=== PATIENT | male | born 1965 | race Caucasian/White ===

== ENCOUNTER 2019-08-13 19:14 | Inpatient (IN) | payer MEDICAID ==
[~2019-08-13] VITALS: Ht 185.4 cm; Wt 61.2 kg
--- NOTE | ~2019-08-13 | HEMODYNAMI ---
PATIENT:PALLAVI DON MEDICAL RECORD: [id number] : 69 LOCATION:[facility] ADMISSION DATE: 08/13/19 Generatedon:08/15/201910:05 Patient name: PALLAVI DON Patient #: [id number] SSN: : 1965 Date of study: 08/15/2019 Page: Of Hemodynamic Procedure Report Patient Data Patient Demographics Procedure consent was obtained First Name: PALLAVI Gender: Male Last Name: ARIAN : 1965 Patient #: [id number] Age: 54 year(s) Race: Unknown Additional ID: [id number] Contact details [address]: [address] [place] [address] State: [place] City: [place] Zip code: [address] Past Medical History Allergies: No known allergies Admission Admission Data Admission Date: 08/13/2019 Admission Time: 20:59 Room #: 2203 Height (in.): 71 BSA: 1.78 (m2) Height (cm.): 180.34 BMI: 18.83 (kg/m2) Weight (lbs.): 135 Weight (kg.): 61.23 Procedure Procedure Types Cath Procedure Peripheral Cath Diagnostic Procedure Developmental Psychologist Peripheral Procedures Abd/Extremity Extremities Bilat Lower Extremity Procedure Description Procedure Date Procedure Date: 08/15/2019 Procedure Start Time: 9:19 Procedure Staff Name Function Ronnie Odonnell MD Performing Physician Virginia Diop RT Patient Coordinator Front Desk Cindy Thompson RN Nurse RICO ALONSO RT Scrub Procedure Data Cath Procedure Fluoroscopy Diagnostic fluoroscopy Total fluoroscopy Time: 6.6 time: 6.6 min min Contrast Material Contrast Material Type Amount (ml) Isovue 300 120 Diagnostic catheters Device Type Used For End Catheter Placement Merit ULTRA BOLUS FLUSH 5Fr 65CM catheter ([id number]) Procedure Medications Medication Administration Route Dosage Heparin Flush Bag added to field 3 bags (1000units/500ml NS) Lidocaine 1% added to field 20 Versed I.V. 1 mg Fentanyl I.V. 50 mcg Versed I.V. 1 mg Fentanyl I.V. 50 mcg Benadryl I.V. 50 mg Versed I.V. 1 mg Fentanyl I.V. 50 mcg Heparin Bolus I.V. 2000 units Versed I.V. 1 mg Fentanyl I.V. 50 mcg Hemodynamics Rest BSA: 1.78 (m2) O2 Consumption: Estimated: 230.07 (ml/min) O2 Consumption indexed : Estimated:129.25 (ml/min/m) Heart Rate: 97 (bpm) Snapshots Pre Cath Intra NCS Post Cath Vital Signs Time Heart Resp SPO2 etCO2 NIBP (mmHg) Rhythm Pain Sedation Rate (ipm) (%) (mmHg) Status Level (bpm) 9:01:29 96 16 100 36 158/112(146) NSR 0 (11) 10(A) , No pain 9:05:43 96 15 100 24 154/111(135) NSR 0 (11) 10(A) , No pain 9:09:57 96 16 100 35.3 152/111(139) NSR 0 (11) 10(A) , No pain 9:14:09 93 15 100 31.5 156/108(137) NSR 0 (11) 10(A) , No pain 9:16:28 94 15 100 36 149/112(134) NSR 0 (11) 8(A) , No pain 9:20:38 98 13 100 33 154/113(134) NSR 0 (11) 8(A) , No pain 9:24:50 105 16 100 31.5 155/116(137) NSR 0 (11) 8(A) , No pain 9:29:02 102 16 100 29.2 157/119(140) NSR 0 (11) 8(A) , No pain 9:30:53 100 14 100 33.8 156/112(136) NSR 0 (11) 8(A) , No pain 9:35:04 96 14 100 34.5 143/106(126) NSR 0 (11) 8(A) , No pain 9:39:12 95 14 100 27 140/106(118) NSR 0 (11) 8(A) , No pain 9:43:20 96 15 100 31.5 152/107(131) NSR 0 (11) 8(A) , No pain 9:47:32 98 16 100 24.7 151/111(132) NSR 0 (11) 8(A) , No pain 9:51:42 92 16 100 32.3 151/100(135) NSR 0 (11) 8(A) , No pain 9:55:52 96 16 100 33.8 151/107(131) NSR 0 (11) 8(A) , No pain 10:00:02 93 13 100 33.8 153/110(136) NSR 0 (11) 8(A) , No pain 10:03:51 91 15 100 33.8 153/110(134) NSR 0 (11) 8(A) , No pain Medications Time Medication Route Dose Verified Delivered Reason Notes Effec tiveness by by 9:14:51 Heparin Flush added 3 Ronnie Trujillo used for Bag to bags Odonnell Odonnell procedure (1000units/500ml field MD JOHNSON NS) 9:15:02 Lidocaine 1% added 20ml Ronnie Trujillo for local to vial Odonnell Odonnell anesthetic field MD JOHNSON 9:15:14 Versed I.V. 1 mg Ronnie White for Odonnell Jay RN sedation 9:15:28 Fentanyl I.V. 50 Ronnie Singhody for mcg Odonnell Jay RN sedation 9:19:03 Versed I.V. 1 mg Ronnie Singhody for Odonnell Jay RN sedation 9:19:12 Fentanyl I.V. 50 Ronnie Cindy for mcg Odonnell Ajy RN sedation 9:29:34 Benadryl I.V. 50 mg Ronnie Singhody Per Odonnell Jay RN physician 9:29:43 Versed I.V. 1 mg Ronnie Singhody for Odonnell Jay RN sedation 9:29:53 Fentanyl I.V. 50 Ronnie Cindy for mcg Odonnell Jay RN sedation 9:33:25 Heparin Bolus I.V. 2000 Ronnie Trujillo used for units Odonnell Odonnell procedure MD JOHNSON 9:44:47 Versed I.V. 1 mg Ronnie Singhody for Odonnell Jay RN sedation 9:44:56 Fentanyl I.V. 50 Ronnie Cindy for mcg Odonnell Jay RN sedation Procedure Log Time Note 8:39:44 Patient Height : 71 inches 8:39:48 Patient Weight : 135 lbs 8:40:29 Use device set IR Diagnostic 8:40:31 Tegaderm 4 x 4 ([id number]) opened to sterile field. 8:40:32 Sterile Angiographic Pack opened to sterile field. 8:40:34 Bag Decanter (2002S) opened to sterile field. 8:40:55 PERCUTANEOUS ENTRY 19GA needle opened to sterile field. 8:41:06 DOC .035 wire ([id number]) opened to sterile field. 8:56:29 Time tracking: Regular hours (M-F 7:00 - 5:00) 8:56:36 Plan of Care:Hemodynamics will remain stable., Cardiac rhythm will remain stable., Comfort level will be maintained., Respiratory function will remain adequate., Patient/ family verbilizes understanding of procedure., Procedure tolerated without complication., Recovers from procedure without complications.. 8:56:44 Patient received from Med/Surg to IR Alert and oriented. Tansferred to table in Supine position. 8:56:47 Signed procedure consent form obtained from patient. 8:56:53 H&P Date Dictated: 08/15/2019 Within 30 days and on chart.. 8:56:58 Pre-procedure instructions explained to patient. 8:56:59 Pre-op teaching completed and patient verbalized understanding. 8:57:01 Family unavailable. 8:57:03 Patient NPO since Midnight. 8:57:13 Patient allergic to No known allergies 8:57:57 Is the patient allergic to Iodine/contrast media? No. 8:58:04 Is patient on blood thinner?No 8:58:07 Patient diabetic? No. 8:58:18 - 8:58:20 ----Pre-sedation anethsthesia assessment.---- 8:58:24 Previous problem with sedation/anesthesia? No ? 8:58:28 Snore? No 8:58:31 Sleep apnea? No 8:58:42 Deviated septum? No 8:58:52 Opens mouth fully? Yes 8:58:55 Sticks out tongue? Yes 8:58:58 Airway obstruction? No ? 8:59:04 Dentures? No ? 8:59:09 Pre procedure: right dorsailis pedis pulse Doppler 8:59:13 Pre procedure: left dorsailis pedis pulse Doppler 8:59:24 Pre procedure: right posterior tibial pulse Doppler 8:59:29 Pre procedure: left posterior tibial pulse Doppler 8:59:38 Right groin area was prepped with chlora-prep and draped in sterile fashion 8:59:40 - 8:59:49 Fire Safety Assessment: A--An alcohol-based skin anteseptic being used preoperatively., C--Open oxygen or nitrous oxide is being used. 8:59:56 1) 90+ Normal kidney functon but urine findings or structural abnormalities or genetic trait point to kidney disease. 9:00:13 - 9:00:22 ECG and BP/O2 sat monitors applied to patient. 9:00:24 Vital chart was started 9:00:25 Baseline sample Acquired. 9:00:27 Full Disclosure recording started 9:01:05 Baseline sample Acquired. 9:01:16 - 9:14:51 Heparin Flush Bag (1000units/500ml NS) 3 bags added to field was administered by Ronnie Odonnell MD; used for procedure; Verbal order read back and verified. 9:15:02 Lidocaine 1% 20ml vial added to field was administered by Ronnie Odonnell MD; for local anesthetic; Verbal order read back and verified. 9:15:14 Versed 1 mg I.V. was administered by Cindy Thompson RN; for sedation; Verbal order read back and verified. 9:15:28 Fentanyl 50 mcg I.V. was administered by Cindy Thompson RN; for sedation ; Verbal order read back and verified. 9:17:54 SHEATH 6FR [place] (VWG506) opened to sterile field. 9:17:58 A Vital Vio ULTRA BOLUS FLUSH 5Fr 65CM catheter ([id number]) was advanced over the wire and used for . 9:18:07 Physician arrived 9:18:08 --------ALL STOP TIME OUT------ 9:18:08 Final Timeout: patient, procedure, and site verified with staff and physician. All members of the team are in agreement. 9:19:03 Versed 1 mg I.V. was administered by Cindy Thompson RN; for sedation; Verbal order read back and verified. 9:19:05 Procedure started. 9:19:09 Local anesthetic to right femoral artery with Lidocaine 1% by Ronnie Odonnell MD.INITIAL ACCESS ONLY 9:19:12 Fentanyl 50 mcg I.V. was administered by Cindy Thompson RN; for sedation ; Verbal order read back and verified. 9:27:39 GLIDE WIRE ANGLE 180cm (RX7966) opened to sterile field. 9:27:40 VANCE 260 wire ([id number]) opened to sterile field. 9:27:59 TORQUE DEVICE PLASTIC .038 ( TD01) opened to sterile field. 9:29:34 Benadryl 50 mg I.V. was administered by Cindy Thompson RN; Per physician ; Verbal order read back and verified. 9:29:43 Versed 1 mg I.V. was administered by Cindy Thompson RN; for sedation; Verbal order read back and verified. 9:29:53 Fentanyl 50 mcg I.V. was administered by Cindy Thompson RN; for sedation ; Verbal order read back and verified. 9:33:25 Heparin Bolus 2000 units I.V. was administered by Ronnie Odonnell MD; used for procedure; Verbal order read back and verified. 9:34:51 INFLATOR BasixTOUCH (ER0360) opened to sterile field. 9:35:05 SPIDER EMBOLIC PROTECTION DEVICE 6MM ([id number]) opened to sterile field. 9:35:21 CHOICE PT Extra Support J 300cm guide wire ([id number]) opened to steril e field. 9:35:49 Inflate balloon Inflation number: 1 A [place] 7 x 4 x 135 Balloon ([id number]) was prepped and advanced across the Undefined1 , then inflated . 9:44:47 Versed 1 mg I.V. was administered by Cindy Thompson RN; for sedation; Verbal order read back and verified. 9:44:56 Fentanyl 50 mcg I.V. was administered by Cindy Thompson RN; for sedation ; Verbal order read back and verified. 9:47:40 GLIDE CATHETER 4FR Straight 100cm (CG413) opened to sterile field. 9:51:47 ANGIOSEAL-VIP PLUS 6 FR opened to sterile field. 9:54:21 Procedure ended.(Physican Out) 9:55:02 Fluoroscopy time 06.60 minutes. 9:55:09 Contrast amount:Isovue 300 120ml. 9:56:56 Procedure and supply charges have been captured, reviewed, submitted an d are correct. 10:04:40 Report given to Med/Surg. 10:05:14 Vital chart was stopped Intervention Summary Intervention Notes Time ActionType Lesion and Equipment Used Action# Pressure Duration Attributes 9:35:49 Inflate Undefined1 Evercross 7 x 4 1 0 00:00 balloon x 135 Balloon ([id number]) Device Usage Item Name Manufacture Quantity Catalog Number Hospital Part Current Minimal Lot# / Charge Number Stock Stock Serial# Code Tegaderm 4 x 4 3M 1 [id number] 5 (1626W) Sterile Cardinal 1 [id number] 414567 739981 5 Angiographic Health Pack Bag Decanter Microtek 1 338296 87181 855330 5 () Medical Inc. PERCUTANEOUS Cook Medical 1 [id number] 964900 131262 5 [id number] ENTRY 19GA needle DOC .035 wire Cook Medical 1 [id number] 011448 553551 5 ([id number]) SHEATH 6FR Terumo 1 BRQ474 140634 950583 701050 40 [place] (UYE956) Merit ULTRA Merit 1 [id number] 075948 490926 5 BOLUS FLUSH 5Fr Medical 65CM catheter ([id number]) GLIDE WIRE Terumo 1 [id number] 153815 762430 120954 5 ANGLE 180cm (LX4565) VANCE 260 wire Cook Medical 1 [id number] 807311 55302 375351 5 [id number] ([id number]) TORQUE DEVICE [place] 1 TD01 190863 465484 888933 5 PLASTIC .038 ( Scientific TD01) INFLATOR Merit 1 [id number] 026553 468587 452442 5 BasixQuyi Network Medical (ID2934) SPIDER EMBOLIC Medtronic 1 [id number] 663979 720765 5 PROTECTION DEVICE 6MM ([id number]) CHOICE PT Extra [place] 1 [id number] 393508 009306 307714 5 Support J 300cm Scientific guide wire ([id number]) Evercross 7 x 4 Medtronic 1 [id number] 338651 596118 911020 5 x 135 Balloon ([id number]) GLIDE CATHETER Terumo 1 CG413 134496 860150 5 4FR Straight 100cm (CG413) ANGIOSEAL-VIP [place] 1 [id number] 931487 210798 620858 5 PLUS 6 FR Signature Audit [place] Stage Time Signature Unsigned Intra-Procedure 08/15/2019 Virginia Diop 10:05:09 AM RT(R) [facility] [address] [place] [address]
--- NOTE | ~2019-08-13 | EC ---
PATIENT:PALLAVI DON DATE OF SERVICE: 08/13/19 SEX: M MEDICAL RECORD: [id number] DATE OF : [birth year] LOCATION:[facility] AGE OF PATIENT: 54 ADMISSION DATE: 08/13/19 REFERRING PHYSICIAN: INTERPRETING PHYSICIAN: LISA JONES MD ECHOCARDIOGRAM REPORT ECHO CHARGES 4 ECHO COMPLETE Date: 08/15/19 CLINICAL DIAGNOSIS: FOOT AND ABDOMINAL ABCESSESS, ASSESS FOR VEGATATIONS... ECHOCARDIOGRAPHIC MEASUREMENTS (adult normal given) AC root (d.<3.7cm) 4.3 cm LV Septum d (<1.2 cm> 1.2 cm Valve Excursion 1.0 cm LV Septum (systole) 1.5 cm Left Atria (s.<4.0cm> 5.4 cm LVPW d(<1.2cm) 1.4 cm RV (d.<2.3cm) 3.5 cm LVPW (sytole) 1.8 cm LV diastole(<5.6CM) 5.9 cm MV E-F(>70mm/sec) cm LV systole 4.8 cm LVOT Diameter 2.3 cm MV exc.(>10mm) 1.6 cm Est.ejection fraction (50-75%) % DOPPLER: LVIT cm/sec A 91.0 cm/sec E 55.0 cm/sec LA cm/sec RVSP 18 mmHg LVOT 79 cm/sec AOP1/2T m/s Asc. Ao 107 cm/sec RVOT 68 cm/sec RA cm/sec PA 103 cm/sec AV Gradient Peak 4.56 mmHg AV Mean 2.78 mmHg AV Area 3.6 cm MV Gradient Peak 5.28 mmHg MV Mean 2.10 mmHg MV Area cm COMMENTS: Apparel Merchandiser: 2 GABBI TIAN Hot Die Picker: 1 Dr. Jones TAPE# PACS Pericardial Effusion N DATE OF SERVICE: ECHOCARDIOGRAM FINDINGS: 1. Left ventricular chamber size is mildly dilated. 2. Left ventricular systolic function is preserved at 55%. 3. Left atrium is mildly dilated. Right atrium and right ventricle chamber sizes are within normal limits. 4. Valvular structures have normal structure and motion. No evidence of ECHOCARDIOGRAM REPORT [id number] PALLAVI DON vegetative endocarditis. 5. Doppler interrogation reveals mild mitral regurgitation, no other valvular insufficiency or stenosis. 6. No evidence of pericardial effusion or left ventricular thrombus. TRANSINT:[id number] Voice Confirmation ID: [id number] DOCUMENT ID: [id number] LISA JONES MD CC: [id number] DICTATION DATE: 08/17/19 1007 PIANO TECHNICIAN: 08/17/19 1652 ADM IN [facility] [address] [place] [address]
[2019-08-13] MEDS ORDERED: BAYER CHEWABLE81 MG PO (19:25)
--- NOTE | 2019-08-13 19:57 | NUR ---
PT PRESENTS TO ER YULIANA 15 VIA W/C, PT NEEDED TO GO TO THE BATHROOM AND AMBULATED FROM FROM AMIN TO BATHROOM AND BACK TO W/C
[2019-08-13 20:12] LABS: BASOPHILS 0.3 % (0-2); EOSINOPHILS 3.4 % (0-7); HEMATOCRIT 38.7 % (42.0-54.0); HEMOGLOBIN 12.2 g/dL (13.5-17.5); IMMATURE GRANULOCYTES 0.6 % (0-5); LYMPHOCYTES 6.2 % (15-50); MCH 28.2 pg (26.0-34.0); MCHC 31.5 g/dL (31.0-37.0); MCV 89.4 fL (80.0-100.0); MEAN PLATELET VOLUME 10.3 fL (7.4-10.4); MONOCYTES 5.5 % (2-11); PLATELET COUNT 619 10x3/uL (130-400); RBC 4.33 10x6/uL (4.20-6.10); RDW 19.5 % (11.5-14.5); WBC 14.5 10x3/uL (4.8-10.8)
[2019-08-13 20:21] LABS: CALC OSMOLALITY 267 mosm/kg (275-300); CALCIUM 7.8 mg/dL (8.5-10.1); CARBON DIOXIDE 28.8 mmol/L (21.0-32.0); CHLORIDE - SERUM 100 mmol/L (98-107); CREATININE - SERUM 0.8 mg/dL (0.6-1.3); GLUCOSE 81 mg/dL (74-106); POTASSIUM - SERUM 3.6 mmol/L (3.5-5.1); SODIUM 135 mmol/L (136-145); UREA NITROGEN 9 mg/dL (7-18); eGFR NON AFRICAN AMERICAN > 90 mL/min (90-120)
[2019-08-13 20:27] LABS: ALKALINE PHOSPHATASE 167 U/L (30-120); ALT (SGPT) 17 U/L (10-68); BILIRUBIN - TOTAL 0.33 mg/dL (0.2-1.3); PROTEIN - SERUM 5.9 g/dL (6.4-8.2)
[2019-08-13 20:30] LABS: APTT 35.8 SECONDS (22.8-39.4); INR 1.08 (0.85-1.17); PROTIME 13.9 SECONDS (11.6-15.0)
[2019-08-13 21:00] VITALS: BP 162/114
--- NOTE | 2019-08-13 21:52 | NUR ---
PT TAKEN TO CT AT THIS TIME TIME VIA BED
--- NOTE | 2019-08-13 22:01 | NUR ---
PT REPORT CALLED TO LISSA CHACON
[2019-08-13 22:28] VITALS: BP 160/100
--- NOTE | 2019-08-13 23:45 | NUR ---
PT ARRIVED TO FLOOR AOX4, NO COMPLAINTS OF PAIN AT THIS TIME. IV LEFT WRIST INFUSING NS @ 125. LEFT FOOT TOES BLACK, REDNESS TO FOOT UP TO ANKLE, SWELLING. PULSES PRESENT BILAT. GOLF BALL SIZE LUMP ON RIGHT SIDE OF PT HEAD. PT DID NOT ANSWER QUESTION ABOUT WHERE IT CAME FROM. REMINDED PT HE IS NPO AFTER MN. VERBALIZED UNDERSTANDING. URINAL PROVIDED. COLLECTED UA. DENIES OTHER NEEDS. CL IN REACH, WILL CTM
[2019-08-14 00:15] LABS: BILIRUBIN NEGATIVE (NEGATIVE); GLUCOSE NEGATIVE (NEGATIVE); KETONE NEGATIVE (NEGATIVE); NITRITE NEGATIVE (NEGATIVE); SPECIFIC GRAVITY 1.005 (1.005-1.020); UROBILINOGEN NORMAL (NORMAL)
[2019-08-14 00:29] VITALS: BMI 17.8
--- NOTE | 2019-08-14 04:15 | NUR ---
IV LEFT WRIST CAME OUT ACCIDENTALLY. CATHETER INTACT. SITED 20G LEFT FA X1 ATTEMPT
[2019-08-14 04:42] LABS: BASOPHILS 0.5 % (0-2); EOSINOPHILS 3.4 % (0-7); HEMATOCRIT 36.3 % (42.0-54.0); HEMOGLOBIN 11.4 g/dL (13.5-17.5); IMMATURE GRANULOCYTES 0.4 % (0-5); LYMPHOCYTES 5.8 % (15-50); MCH 28.1 pg (26.0-34.0); MCHC 31.4 g/dL (31.0-37.0); MCV 89.6 fL (80.0-100.0); MEAN PLATELET VOLUME 10.1 fL (7.4-10.4); MONOCYTES 5.6 % (2-11); NEUTROPHILS 84.3 % (40-80); PLATELET COUNT 639 10x3/uL (130-400); RBC 4.05 10x6/uL (4.20-6.10); RDW 19.4 % (11.5-14.5); WBC 13.8 10x3/uL (4.8-10.8)
[2019-08-14 04:54] LABS: % SATURATION 30 % (15-55); IRON 33 ug/dl (35-150); TOTAL IRON BIND CAPACITY 110 ug/dl (260-445); UNSAT IRON BIND CAPACITY 77 ug/dl (150-375)
[2019-08-14 05:40] LABS: ALBUMIN 1.9 g/dL (3.4-5.0); ALKALINE PHOSPHATASE 158 U/L (30-120); ALT (SGPT) 14 U/L (10-68); BILIRUBIN - TOTAL 0.45 mg/dL (0.2-1.3); CALC OSMOLALITY 269 mosm/kg (275-300); CALCIUM 7.8 mg/dL (8.5-10.1); CARBON DIOXIDE 24.9 mmol/L (21.0-32.0); CHLORIDE - SERUM 102 mmol/L (98-107); CREATININE - SERUM 0.9 mg/dL (0.6-1.3); FERRITIN 106 ng/mL (3-244); GLUCOSE 81 mg/dL (74-106); MAGNESIUM - SERUM 1.3 mg/dL (1.8-2.4); PHOSPHOROUS 3.5 mg/dL (2.5-4.9); PROTEIN - SERUM 6.1 g/dL (6.4-8.2); SODIUM 136 mmol/L (136-145); UREA NITROGEN 9 mg/dL (7-18); eGFR NON AFRICAN AMERICAN > 90 mL/min (90-120)
[2019-08-14 08:55] VITALS: BP 163/106
--- NOTE | 2019-08-14 09:02 | NUR ---
AWAKE AND ALERT. ORIENTED X3. C/O PAIN TO LEFT FOOT LEVEL 8. GIVEN 4MG MORPHINE SLOW IVP FOR SAME. WILL MONITOR. LUNGS ARE CLEAR BILATERALLY, NO COUGH NOTED. SKIN IS INTACT WITHOUT REDNESS EXCEPT TOES ON LEFT FOOT ARE BLACKENED. PEDAL PULSES PRESENT TO FOOT. IV TO LEFT FOREARM IS PATENT WTIHOUT REDNESS AT INSERTION SITE. WANTS FOOD. DENIES NEEDS.
--- NOTE | 2019-08-14 09:30 | NUR ---
BREAKFAST SERVED IN ROOM BRENDEN TO EAT ALL OF TRAY. DENIES NEEDS. REPORTS PAIN IMPROVED WITH MORPHINE.
[2019-08-14 11:48] VITALS: BMI 17.8
[2019-08-14 13:20] VITALS: Ht 185.4 cm; Wt 61.2 kg
--- NOTE | 2019-08-14 14:33 | NUR ---
REQUESTED AND GIVEN 4MG MORPHINE SLOW IVP FOR C/O LEFT FOOT PAIN LEVEL 8. WILL MONITOR.
[2019-08-14 16:55] VITALS: BP 144/79
--- NOTE | 2019-08-14 18:27 | MORECARE ---
CASE MANAGEMENT DISCHARGE SUMMARY PATIENT: PALLAVI DON UNIT: [id number] ADM DATE: 08/13/19 AGE: 54 : [birth year] SEX: M ROOM/BED: D.2203 AUTHOR: KEYONNA MUNOZ PHYSICIAN: REFERRING PHYSICIAN: ROXANNE ALTMAN MD DATE OF SERVICE: 08/14/19 Discharge Plan Patient Name: PALLAVI DON Facility: [facility]:[place] : 1965 Planned Disposition: Anticipated Discharge Date: Discharge Date: Expected LOS: Initial Reviewer: [email or web address] Initial Review Date: 08/13/2019 Generated: 08/14/19 7:27 pm Patient Name: PALLAVI DON Page [id number] at 1827 All edits/amendments must be made on the electronic document DICTATION DATE: 08/14/191826 ACTIVE DIRECTORY ADMINISTRATOR: WHIT 08/14/191826 RPT#: [id number] DC DATE: STATUS: ADM IN [facility] [address] [place] [address] END OF REPORT
--- NOTE | 2019-08-14 18:35 | MORECARE ---
CASE MANAGEMENT DISCHARGE SUMMARY PATIENT: PALLAVI UMAÑA UNIT: [id number] ADM DATE: 08/13/19 AGE: 54 : [birth year] SEX: M ROOM/BED: D.2203 AUTHOR: KEYONNA MUNOZ PHYSICIAN: REFERRING PHYSICIAN: ROXANNE ALTMAN MD DATE OF SERVICE: 08/14/19 Discharge Plan Patient Name: PALLAVI UMAÑA [facility] : 1965 Planned Disposition: Anticipated Discharge Date: Discharge Date: Expected LOS: Initial Reviewer: [email or web address] Initial Review Date: 08/13/2019 Generated: 08/14/19 7:34 pm DCPIA - Discharge Planning Initial Assessment Updated by [email or web address]: Melany Dixon on 08/14/19 6:29 pm * Is the patient Alert and Oriented? Yes * How many steps to enter\exit or inside your home? * PCP unknown ? CASANOVA * Pharmacy [facility] * Preadmission Environment Home with Family * ADLs Independent * Equipment Walker * List name and contact numbers for known caregivers / representatives who currently or will assist patient after discharge: Marisol Umaña - [facility] [phone] * Verbal permission to speak to the caregivers and representatives has been obtained from the patient. Yes * Community resources currently utilized None * Additional services required to return to the preadmission environment? No * Can the patient safely return to the preadmission environment? Yes * Has this patient been hospitalized within the prior 30 days at any hospital? Yes Last DP export: 08/14/19 5:27 p Patient Name: PALLAVI UMAÑA Page [phone] at 1835 All edits/amendments must be made on the electronic document DICTATION DATE: 08/14/191833 SANDWICH PEDDLER: WHIT 08/14/191833 RPT#: [id number] DC DATE: STATUS: ADM IN [facility] [address] [place] [address] END OF REPORT
--- NOTE | 2019-08-14 18:41 | MORECARE ---
CASE MANAGEMENT DISCHARGE SUMMARY PATIENT: PALLAVI UMAÑA UNIT: [id number] ADM DATE: 08/13/19 AGE: 54 : 69 SEX: M ROOM/BED: D.2203 AUTHOR: ALEXANDER,DOC PHYSICIAN: REFERRING PHYSICIAN: ROXANNE ALTMAN MD DATE OF SERVICE: 08/14/19 Discharge Plan Patient Name: PALLAVI UMAÑA Facility: [facility]:[place] : 1965 Planned Disposition: Anticipated Discharge Date: Discharge Date: Expected LOS: Initial Reviewer: [email or web address] Initial Review Date: 08/13/2019 Generated: 08/14/19 7:41 pm Comments DCP- Discharge Planning Updated by [email or web address]: Melany Dixon on 08/14/19 5:[address] Patient Name: PALLAVI UMAÑA Admission Status: ER Accout number: [id number] Admission Date: 08-13-2019 : 1965 Admission Diagnosis: Attending: CRUZITO Current LOS: 1 Anticipated DC Date: Planned Disposition: Primary Insurance: MEDICAID [place] Discharge Planning Comments: CM met with patient to complete initial dc planning assessment. CM educated patient on the CM role and verbal consent given by patient to complete assessment. Patient lives at home with his sister Marisol At discharge patient plans to return home and feels this is a safe discharge. CM discussed availability of home health, rehab services, and medical equipment. Patient denied known discharge needs at this time. Patient states he has a walker. CM will probably need to re-eval if patient has surgery. CM will continue to follow and will assist as needed with dc plans/needs. Telephone Lineman: Melany Dixon DCPIA - Discharge Planning Initial Assessment Updated by [email or web address]: Melany Dixon on 08/14/19 6:29 pm * Is the patient Alert and Oriented? Yes * How many steps to enter\exit or inside your home? * PCP unknown ? CASANOVA * Pharmacy [facility] * Preadmission Environment Home with Family * ADLs Independent * Equipment Walker * List name and contact numbers for known caregivers / representatives who currently or will assist patient after discharge: Marisol Umaña - sister - [phone] * Verbal permission to speak to the caregivers and representatives has been obtained from the patient. Yes * Community resources currently utilized None * Additional services required to return to the preadmission environment? No * Can the patient safely return to the preadmission environment? Yes * Has this patient been hospitalized within the prior 30 days at any hospital? Yes Last DP export: 08/14/19 5:35 p Patient Name: PALLAVI UMAÑA Page 73915 at 1841 All edits/amendments must be made on the electronic document DICTATION DATE: 08/14/191840 CENTER HUMAN RESOURCES MANAGER: WHIT 08/14/191840 RPT#: [id number] DC DATE: STATUS: ADM IN [facility] [address] [place] [address] END OF REPORT
--- NOTE | 2019-08-14 18:46 | NUR ---
ATE ALL OF SUPPER. DENIES NEEDS. NO CHANGES NOTED.
[2019-08-14 23:40] VITALS: BP 155/88
[2019-08-15] VITALS (10 sets, daily range): BP systolic 132–164; BP diastolic 90–117
--- NOTE | 2019-08-15 02:38 | NUR ---
B/P 150/99 CALL TO KENNEL HAND NEW ORDER FOR HYDRALACINE 10MG PO Q 6 HR PRN FOR SBP GREATER THAT 170 AND DBP GREATER THAT 100
[2019-08-15 04:52] LABS: BASOPHILS 0.5 % (0-2); EOSINOPHILS 4.1 % (0-7); HEMATOCRIT 35.1 % (42.0-54.0); HEMOGLOBIN 10.6 g/dL (13.5-17.5); IMMATURE GRANULOCYTES 0.7 % (0-5); LYMPHOCYTES 6.9 % (15-50); MCH 27.5 pg (26.0-34.0); MCHC 30.2 g/dL (31.0-37.0); MCV 90.9 fL (80.0-100.0); MEAN PLATELET VOLUME 9.6 fL (7.4-10.4); MONOCYTES 6.3 % (2-11); NEUTROPHILS 81.5 % (40-80); PLATELET COUNT 660 10x3/uL (130-400); RBC 3.86 10x6/uL (4.20-6.10); RDW 19.2 % (11.5-14.5); WBC 11.8 10x3/uL (4.8-10.8)
[2019-08-15 05:07] LABS: INR 1.13 (0.85-1.17); PROTIME 14.4 SECONDS (11.6-15.0)
[2019-08-15 05:34] LABS: CALC OSMOLALITY 268 mosm/kg (275-300); CALCIUM 7.5 mg/dL (8.5-10.1); CARBON DIOXIDE 24.4 mmol/L (21.0-32.0); CHLORIDE - SERUM 104 mmol/L (98-107); CREATININE - SERUM 0.8 mg/dL (0.6-1.3); GLUCOSE 85 mg/dL (74-106); MAGNESIUM - SERUM 1.2 mg/dL (1.8-2.4); PHOSPHOROUS 2.9 mg/dL (2.5-4.9); POTASSIUM - SERUM 3.1 mmol/L (3.5-5.1); SODIUM 136 mmol/L (136-145); UREA NITROGEN 8 mg/dL (7-18); eGFR NON AFRICAN AMERICAN > 90 mL/min (90-120)
--- NOTE | 2019-08-15 07:18 | NUR ---
PT IS RESTING IN BED WITH EYES OPEN. RESPIRATIONS ARE EVEN AND UNLABORED. PT IS AAO X 4. LLE DISCOLORATION TO TOES/FOOT NOTED. PEDAL PULSE IS PALP BUT FAINT. PT REPORTS SLIGHT PAIN RATED 5/10 AT THIS TIME TO LLE BUT DENIES NEEDS. PT HAS BEEN NPO SINCE MIDNIGHT FOR PROCEDURE THIS AM. PT DENIES ANY QUESTIONS/CONCERNS RELATED TO PROCEDURE. BED IS IN THE LOWEST POSITION. CALL LIGHT AND BEDSIDE TABLE ARE WITHIN REACH. SIDE RAILS X 2. PT DENIES FURTHER NEEDS. WILL CONT TO MONITOR.
--- NOTE | 2019-08-15 11:03 | NUR ---
MANUAL BP IS 150/102. WILL ADDRESS. SEE EMAR.
--- NOTE | 2019-08-15 11:42 | NUR ---
PT BEING UNCOOPERATIVE WITH LAYING FLAT FOR 4 HOURS DIRECTED. FALL PRECAUTIONS IN PLACE. NENA ALARM IS ON AND WORKING. PT CONTINUES TO MOVE BLE AND WAS ATTEMPTING TO STAND UP AND GET OUT OF BED. PT EDUCATED ON PLAN OF CARE AND ORDERS TO LAY FLAT DUE TO PROCEDURE THIS AM. PT VERBALIZES UNDERSTANDING AND LAYS BACK DOWN IN THE BED. DRESSING TO RIGHT GROIN IS CDI. NO S/S OF DISTRESS NOTED. BED IS IN THE LOWEST POSITION. CALL LIGHT AND BEDSIDE TABLE ARE WITIHN REACH. SIDE RAILS X 2. PT DENIES FURTHER NEEDS. WILL CONT TO MONITOR.
--- NOTE | 2019-08-15 11:50 | NUR ---
PT HAD LLE ARTERIORGRAM. HE IS LYING FLAT WITH HIS LEGS STRAIGHT. IT IS NOTED THAT HIS LEFT GREAT TOE AND #2,4 AND 5 TOES ARE BLACK AND COLD. NO DRAINAGE OR ODOR IS NOTED AT THIS TIME. RECOMMENDED PAINTING WITH BETADINE AND WRAPPING LOOSELY WITH KERLIX FOR PROTECTION. WOUND CARE WILL MONITOR.
--- NOTE | 2019-08-15 12:23 | NUR ---
PT SEEN ATTEMPTING TO GET OUT OF BED. PT INFORMED OF NEED TO LAY FLAT DUE TO PROCEUDRE. PT VERBALIZES UNDERSTANDING AND STATES "I NEED TO PEE NOW". PT ASSISTED TO LAYING POSITION. URINAL GIVEN. PT VOIDING WITHOUT DIFFICULTY AT THIS TIME. NENA ALARM IS ON AND WORKING. BED IS IN THE LOWEST POSITION. CALL LIGHT AND BEDSIDE TABLE ARE WITIHN REACH. SIDE RAILS X 2. PT DENIES FURTHER NEEDS. WILL CONT TO MONITOR.
--- NOTE | 2019-08-15 14:15 | NUR ---
PT 4 HOURS POST ARTERIOGRAM COMPLETE. PT INFORMED OF ABILITY TO MOVE ABOUT AND TO CALL FOR ASSISTANCE WITH AMBULATION. DRESSING TO RIGHT GROIN IS CDI. PT VERBALIZES UNDERSTANDING. BED IS IN THE LOWEST POSITION. CALL LIGHT AND BEDSIDE TABLE ARE WITHIN REACH. SIDE RAILSX 2. PT DENIES FURTHER NEEDS. NENA ALARM IS ON AND WORKING. WILL CONT TO MONITOR.
--- NOTE | 2019-08-15 14:43 | NUR ---
PT IS AAO X 4. CONSENTS FOR 08/16/2019 PROCEDURE SIGNED BY PT. SIGNED CONSENTS PLACED IN PT CHART. PT DENIES FURTHER QUESTIONS/CONCERNS/NEEDS AT THIS TIME. BED IS IN THE LOWEST POSITION. CALL LIGHT AND BEDSIDE TABLE ARE WITHIN REACH. SIDE RAILS X2. NENA ALARM IS ON AND WORKING. DRESSING TO RIGHT GROIN IS CDI. WILL CONT TO MONITOR.
--- NOTE | 2019-08-15 19:21 | NUR ---
APRESOLINE 10MG GIVEN FOR B/P OF 146/109.
--- NOTE | 2019-08-15 21:22 | NUR ---
PATENT IS ALERT AND ORENTED UP WITH ASSIST. DRESSING TO RIGHT GROIN CDI AT THIS TIME. IV TO LEFT FA. WITH NS AT 125.
[2019-08-16] VITALS (11 sets, daily range): BP systolic 116–137; BP diastolic 82–97
[2019-08-16 04:48] LABS: CALC OSMOLALITY 269 mosm/kg (275-300); CALCIUM 7.8 mg/dL (8.5-10.1); CARBON DIOXIDE 25.1 mmol/L (21.0-32.0); CHLORIDE - SERUM 104 mmol/L (98-107); GLUCOSE 97 mg/dL (74-106); MAGNESIUM - SERUM 1.3 mg/dL (1.8-2.4); PHOSPHOROUS 3.1 mg/dL (2.5-4.9); SODIUM 136 mmol/L (136-145); UREA NITROGEN 7 mg/dL (7-18); eGFR NON AFRICAN AMERICAN 83 mL/min (90-120)
[2019-08-16 04:56] LABS: BASOPHILS 0.6 % (0-2); EOSINOPHILS 4.8 % (0-7); HEMATOCRIT 38.1 % (42.0-54.0); HEMOGLOBIN 11.8 g/dL (13.5-17.5); IMMATURE GRANULOCYTES 0.6 % (0-5); LYMPHOCYTES 4.4 % (15-50); MCV 90.5 fL (80.0-100.0); MEAN PLATELET VOLUME 9.8 fL (7.4-10.4); NEUTROPHILS 84.6 % (40-80); PLATELET COUNT 603 10x3/uL (130-400); RBC 4.21 10x6/uL (4.20-6.10); RDW 18.9 % (11.5-14.5); WBC 13.5 10x3/uL (4.8-10.8)
[2019-08-16 05:08] LABS: POTASSIUM - SERUM 4.1 mmol/L (3.5-5.1)
--- NOTE | 2019-08-16 07:56 | NUR ---
PT RESTING IN BED, AT TIMES RESTLESS. PT AWAITING SURGICAL PROCEDURE THIS AM. VOICES NPO SINCE MIDNIGHT. IV TO LEFT FOREARM WITH NS @ 125ML/HR INFUSING VIA PUMP. PT ASSISTED TO BATHROOM AND BACK TO BED AT THIS TIME. CL WITHIN REACH. ENCOURAGED TO CALL WITH NEEDS. CONTINUE TO MONITOR.
--- NOTE | 2019-08-16 09:02 | NUR ---
PT TAKEN TO PREOP VIA BED. NO ACUTE DISTRESS NOTED AT THIS TIME.
--- NOTE | 2019-08-16 20:00 | NUR ---
PATIENT RESTING IN BED WITH EYES CLOSED. NO S/S OF DISTRESS. NO C/O AT THIS TIME. PATIENT HAS LEFT FOREARM NORMAL SALINE @ 125 ML/HR. IV IS PATENT WITHOUT REDNESS, SWELLING, OR TENDERNESS. PATIENT HAD MIDLINE FOOT AMPUTATION TODAY ON LEFT FOOT. PATIENT LEFT FOOT IS WRAPPED AND SPLINTED, DRESSING IS C/D/I. PATIENT HAS BED ALARM ON BED. CALL LIGHT IN PLACE WILL CONTINUE TO MONITOR.
[2019-08-17] VITALS: BP 135/96
--- NOTE | 2019-08-17 03:50 | NUR ---
PATIENT IV INFILTRATED WITH REDNESS, AND PAIN. IV WAS TAKEN OUT OF LEFT FOREARM CATHETER TIP INTACT. WILL TRY TO PLACE ANOTHER IV. CALL LIGHT IN PLACE. WILL CONTINUE TO MONITOR.
[2019-08-17 04:00] VITALS: BP 154/97
--- NOTE | 2019-08-17 04:20 | NUR ---
PATIENT IV RESITED IN RIGHT FOREARM. IV IS PATENT WITHOUT REDNESS, SWELLING, OR TENDERNESS. CALL LIGHT IN PLACE. WILL CONTINUE TO MONITOR.
[2019-08-17 04:42] LABS: CALCIUM 7.9 mg/dL (8.5-10.1); CARBON DIOXIDE 26.2 mmol/L (21.0-32.0); CHLORIDE - SERUM 106 mmol/L (98-107); GLUCOSE 103 mg/dL (74-106); PHOSPHOROUS 2.5 mg/dL (2.5-4.9); SODIUM 138 mmol/L (136-145); eGFR NON AFRICAN AMERICAN 83 mL/min (90-120)
[2019-08-17 04:48] LABS: CALC OSMOLALITY 272 mosm/kg (275-300); MAGNESIUM - SERUM 1.7 mg/dL (1.8-2.4); POTASSIUM - SERUM 3.4 mmol/L (3.5-5.1); UREA NITROGEN 5 mg/dL (7-18)
[2019-08-17 05:58] LABS: HEMATOCRIT 41.4 % (42.0-54.0); HEMOGLOBIN 12.7 g/dL (13.5-17.5); MCH 28.2 pg (26.0-34.0); MCHC 30.7 g/dL (31.0-37.0); MCV 91.8 fL (80.0-100.0); PLATELET COUNT 887 10x3/uL (130-400); RBC 4.51 10x6/uL (4.20-6.10); RDW 20.1 % (11.5-14.5)
[2019-08-17 06:58] LABS: BASOPHILS 4 % (0-2); BURR CELLS 2+; EOSINOPHILS 1 % (0-7); LYMPHOCYTES 15 % (15-50); MONOCYTES 2 % (2-11); NEUTROPHILS 78 % (40-80); PLATELET ESTIMATE INCREASED
[2019-08-17 06:59] LABS: SCHISTOCYTES OCC
--- NOTE | 2019-08-17 07:23 | NUR ---
PT IS RESTING IN BED WITH EYES OPEN. RESPIRATIONS ARE EVEN AND UNLABORED. PT IS AAO X 4. PT REPORTS PAIN 8/10 TO LLE. DRESSING TO LLE NOTED AND CDI. RIGHT #3 TOE WITH DISCOLORATION. RIGHT PEDAL PULSE PALP AND CAP REFILL IS < 3. PT DENIES PRESENCE OF NUMBNESS/TINGLING AT THIS TIME. PT DENIES PRESENCE OF N/V. PT REPORTS THAT HE HAS NOT HAD A BM AND STATES "ERIKA ONLY BEEN PASSING GAS". FALL PRECAUTIONS IN PLACE. BED IS IN THE LOWEST POSITION. CALL LIGHT AND BEDSIDE TABLE ARE WITHIN REACH. SIDE RAILS X 2. PT DENIES FURTHER NEEDS. WILL CONT TO MONITOR.
[2019-08-17 10:11] LABS: VANCOMYCIN - TROUGH 20.9 ug/mL (10.0-20.0)
[2019-08-17 10:12] LABS: POTASSIUM - SERUM 4.5 mmol/L (3.5-5.1)
[2019-08-17 11:59] VITALS: BP 137/101
--- NOTE | 2019-08-17 13:08 | NUR ---
Nutrition Follow-up: POD 1 L midfoot amputation. Eating breakfast at time of visit this AM. Good appetite. Diet: Regular PO intake: 50-100% No new wt; last wt: 135# (08/13) Labs noted: K+ 3.4, Ca 7.9, Mg 1.7 Meds noted: HCTZ, Protonix, KDur, Mag Sulfate, MagOx, NS @ 125 -Change to low Na diet 2/2 HTN. -Monitor wt; noted daily wts ordered. -RD following.
--- NOTE | 2019-08-17 16:57 | MORECARE ---
CASE MANAGEMENT DISCHARGE SUMMARY PATIENT: PALLAVI UMAÑA UNIT: [id number] ADM DATE: 08/13/19 AGE: 54 : 69 SEX: M ROOM/BED: D.2203 AUTHOR: ALEXANDER,DOC PHYSICIAN: REFERRING PHYSICIAN: ROXANNE ALTMAN MD DATE OF SERVICE: 08/17/19 Discharge Plan Patient Name: PALLAVI UMAÑA Facility: [facility]:[place] : 1965 Planned Disposition: Anticipated Discharge Date: Discharge Date: Expected LOS: Initial Reviewer: [email or web address] Initial Review Date: 08/13/2019 Generated: 08/17/19 5:57 pm Comments DCP- Discharge Planning Updated by [email or web address]: Melany Dixon on 08/14/19 5:[address] Patient Name: PALLAVI UMAÑA Admission Status: ER Accout number: [id number] Admission Date: 08-13-2019 : 1965 Admission Diagnosis: Attending: CRUZITO Current LOS: 1 Anticipated DC Date: Planned Disposition: Primary Insurance: MEDICAID [place] Discharge Planning Comments: CM met with patient to complete initial dc planning assessment. CM educated patient on the CM role and verbal consent given by patient to complete assessment. Patient lives at home with his sister Marisol At discharge patient plans to return home and feels this is a safe discharge. CM discussed availability of home health, rehab services, and medical equipment. Patient denied known discharge needs at this time. Patient states he has a walker. CM will probably need to re-eval if patient has surgery. CM will continue to follow and will assist as needed with dc plans/needs. Header Set Up Operator: Melany Dixon DCPIA - Discharge Planning Initial Assessment Updated by [email or web address]: Melany Dixon on 08/14/19 6:29 pm * Is the patient Alert and Oriented? Yes * How many steps to enter\exit or inside your home? * PCP unknown ? CASANOVA * Pharmacy [place] * Preadmission Environment Home with Family * ADLs Independent * Equipment Walker * List name and contact numbers for known caregivers / representatives who currently or will assist patient after discharge: Marisol Umaña - sister - [phone] * Verbal permission to speak to the caregivers and representatives has been obtained from the patient. Yes * Community resources currently utilized None * Additional services required to return to the preadmission environment? No * Can the patient safely return to the preadmission environment? Yes * Has this patient been hospitalized within the prior 30 days at any hospital? Yes External Providers External Provider: OTHER-OTHER Next Contact Date: Service Request Date: Service Type: Resolution: Reviewer: Comments: Last DP export: 08/14/19 5:42 p Patient Name: PALLAVI UMAÑA Page [id number] at 1657 All edits/amendments must be made on the electronic document DICTATION DATE: 08/17/191656 PRODUCT SALES ENGINEER: WHIT 08/17/191656 RPT#: [id number] DC DATE: STATUS: ADM IN [facility] [address] [place] [address] END OF REPORT
[2019-08-17 17:24] VITALS: BP 158/106
--- NOTE | 2019-08-17 18:43 | MORECARE ---
CASE MANAGEMENT DISCHARGE SUMMARY PATIENT: PALLAVI UMAÑA UNIT: [id number] ADM DATE: 08/13/19 AGE: 54 : 69 SEX: M ROOM/BED: D.2203 AUTHOR: ALEXANDER,DOC PHYSICIAN: REFERRING PHYSICIAN: ROXANNE ALTMAN MD DATE OF SERVICE: 08/17/19 Discharge Plan Patient Name: PALLAVI UMAÑA Facility: [facility]:[place] : 1965 Planned Disposition: Anticipated Discharge Date: Discharge Date: Expected LOS: Initial Reviewer: [email or web address] Initial Review Date: 08/13/2019 Generated: 08/17/19 7:43 pm Comments DCP- Discharge Planning Updated by [email or web address]: Melany Dixon on 08/17/19 5:[address] CM spoke with patient to see if would be interested in rehab at [facility] if he still has days available when discharged. Patient did agree to Rehab and CONSTANTINO signed he doesn't want Home health at this time. CM faxed records to [facility]. Patient states he has all the DME equipment he needs. CM will continue to follow and assist as needed with discharge planning needs. DCP- Discharge Planning Updated by [email or web address]: Melany Dixon on 08/14/19 5:[address] Patient Name: PALLAVI UMAÑA Admission Status: ER Accout number: [id number] Admission Date: 08-13-2019 : 1965 Admission Diagnosis: Attending: CRUZITO Current LOS: 1 Anticipated DC Date: Planned Disposition: Primary Insurance: MEDICAID [place] Discharge Planning Comments: CM met with patient to complete initial dc planning assessment. CM educated patient on the CM role and verbal consent given by patient to complete assessment. Patient lives at home with his sister Marisol At discharge patient plans to return home and feels this is a safe discharge. CM discussed availability of home health, rehab services, and medical equipment. Patient denied known discharge needs at this time. Patient states he has a walker. CM will probably need to re-eval if patient has surgery. CM will continue to follow and will assist as needed with dc plans/needs. Grounds Maintenance Supervisor: Melany Dixon DCPIA - Discharge Planning Initial Assessment Updated by [email or web address]: Melany Dixon on 08/14/19 6:29 pm * Is the patient Alert and Oriented? Yes * How many steps to enter\exit or inside your home? * PCP unknown ? CASANOVA * Pharmacy [place] * Preadmission Environment Home with Family * ADLs Independent * Equipment Walker * List name and contact numbers for known caregivers / representatives who currently or will assist patient after discharge: Marisol Umaña - [facility] [phone] * Verbal permission to speak to the caregivers and representatives has been obtained from the patient. Yes * Community resources currently utilized None * Additional services required to return to the preadmission environment? No * Can the patient safely return to the preadmission environment? Yes * Has this patient been hospitalized within the prior 30 days at any hospital? Yes Coverage Notice Reviewer: [email or web address] - Melany Dixon Notice Issued Date-Time: 08/17/2019 18:31 Notice Type: Patient Choice Letter Notice Delivered To: Patient Relationship to Patient: Self Recovery Auditor Name: Delivery Method: HAND - Hand Delivered Mylene Days: Prior Verbal Notification: Recipient Understood Notice: Yes Recipient Signature: Yes Med Rec Note Co-signed by Attending: Coverage Notice Comment: [facility] Last DP export: 08/17/19 3:57 pm Patient Name: PALLAVI UMAÑA Page [phone] at 1843 All edits/amendments must be made on the electronic document DICTATION DATE: 08/17/191842 RAILWAY TRACK WORKER: WHIT 08/17/191842 RPT#: [id number] DC DATE: STATUS: ADM IN [facility] [address] [place] [address] END OF REPORT
[2019-08-17 20:00] VITALS: BP 134/95
[2019-08-18 04:00] VITALS: BP 166/92
[2019-08-18 07:07] LABS: BASOPHILS 0.6 % (0-2); EOSINOPHILS 4.3 % (0-7); HEMATOCRIT 34.7 % (42.0-54.0); HEMOGLOBIN 10.7 g/dL (13.5-17.5); IMMATURE GRANULOCYTES 0.6 % (0-5); LYMPHOCYTES 5.9 % (15-50); MCH 28.3 pg (26.0-34.0); MCHC 30.8 g/dL (31.0-37.0); MCV 91.8 fL (80.0-100.0); MEAN PLATELET VOLUME 9.8 fL (7.4-10.4); NEUTROPHILS 82.6 % (40-80); PLATELET COUNT 644 10x3/uL (130-400); RBC 3.78 10x6/uL (4.20-6.10); RDW 18.8 % (11.5-14.5); WBC 14.2 10x3/uL (4.8-10.8)
[2019-08-18 07:18] LABS: CALC OSMOLALITY 256 mosm/kg (275-300); CALCIUM 7.6 mg/dL (8.5-10.1); CARBON DIOXIDE 23.9 mmol/L (21.0-32.0); CHLORIDE - SERUM 102 mmol/L (98-107); CREATININE - SERUM 0.9 mg/dL (0.6-1.3); GLUCOSE 84 mg/dL (74-106); MAGNESIUM - SERUM 1.4 mg/dL (1.8-2.4); PHOSPHOROUS 2.1 mg/dL (2.5-4.9); POTASSIUM - SERUM 3.4 mmol/L (3.5-5.1); SODIUM 130 mmol/L (136-145); UREA NITROGEN 5 mg/dL (7-18); eGFR NON AFRICAN AMERICAN > 90 mL/min (90-120)
--- NOTE | 2019-08-18 09:03 | NUR ---
RESTING IN BED, NO DISTRESS NOTED, APPLICATION DEVELOPMENT PROJECT MANAGER IN PLACE, IV INFUSING, ITZEL WRAP TO LEFT FOOT, NO DRAINAGE NOTED, CONT TO MONITOR
[2019-08-18 14:03] VITALS: BP 145/110
[2019-08-18 16:59] VITALS: BP 153/105
[2019-08-18 20:00] VITALS: BP 148/104
[2019-08-19] VITALS: BP 131/92
[2019-08-19 04:00] VITALS: BP 141/97
[2019-08-19 06:05] LABS: CALC OSMOLALITY 263 mosm/kg (275-300); CARBON DIOXIDE 24.2 mmol/L (21.0-32.0); CHLORIDE - SERUM 104 mmol/L (98-107); CREATININE - SERUM 0.8 mg/dL (0.6-1.3); GLUCOSE 86 mg/dL (74-106); MAGNESIUM - SERUM 1.5 mg/dL (1.8-2.4); PHOSPHOROUS 3.1 mg/dL (2.5-4.9); POTASSIUM - SERUM 4.2 mmol/L (3.5-5.1); SODIUM 134 mmol/L (136-145); UREA NITROGEN 5 mg/dL (7-18); eGFR NON AFRICAN AMERICAN > 90 mL/min (90-120)
[2019-08-19 06:08] LABS: BASOPHILS 0.6 % (0-2); EOSINOPHILS 4.9 % (0-7); HEMATOCRIT 34.5 % (42.0-54.0); HEMOGLOBIN 10.7 g/dL (13.5-17.5); IMMATURE GRANULOCYTES 0.6 % (0-5); LYMPHOCYTES 7.7 % (15-50); MCH 28.4 pg (26.0-34.0); MCV 91.5 fL (80.0-100.0); MEAN PLATELET VOLUME 9.9 fL (7.4-10.4); MONOCYTES 6.5 % (2-11); NEUTROPHILS 79.7 % (40-80); PLATELET COUNT 688 10x3/uL (130-400); RBC 3.77 10x6/uL (4.20-6.10); RDW 18.5 % (11.5-14.5); WBC 12.6 10x3/uL (4.8-10.8)
--- NOTE | 2019-08-19 08:21 | NUR ---
RESTING IN BED, NO DISTRESS NOTED, IV INFUSING, CARE PROVIDER IN PLACE, DRESSING TO LEFT FOOT DRY AND INTACT, CONT TO MONITOR PAIN AND BP
[2019-08-19 08:26] VITALS: BP 140/100
[2019-08-19 13:09] VITALS: BP 159/104
[2019-08-19 16:05] VITALS: BP 157/108
--- NOTE | 2019-08-19 18:11 | NUR ---
RESTING IN BED, NO DISTRESS NOTED, DRESSING TO LEFT FOOT DRY AND INTACT, IV CONT WITH COORDINATE MEASURING MACHINE TECHNICIAN, UP TO BR WITH WALKER
[2019-08-19 20:00] VITALS: BP 150/101
[2019-08-20] VITALS: BP 155/106
[2019-08-20 04:00] VITALS: BP 142/100
[2019-08-20 04:49] LABS: BASOPHILS 0.6 % (0-2); EOSINOPHILS 6.1 % (0-7); HEMATOCRIT 34.4 % (42.0-54.0); HEMOGLOBIN 10.6 g/dL (13.5-17.5); IMMATURE GRANULOCYTES 0.8 % (0-5); LYMPHOCYTES 9.4 % (15-50); MCH 28.1 pg (26.0-34.0); MCHC 30.8 g/dL (31.0-37.0); MCV 91.2 fL (80.0-100.0); MONOCYTES 6.2 % (2-11); NEUTROPHILS 76.9 % (40-80); PLATELET COUNT 812 10x3/uL (130-400); RBC 3.77 10x6/uL (4.20-6.10); RDW 18.3 % (11.5-14.5); WBC 10.6 10x3/uL (4.8-10.8)
[2019-08-20 05:07] LABS: ALBUMIN 1.7 g/dL (3.4-5.0); ALKALINE PHOSPHATASE 517 U/L (30-120); ALT (SGPT) 35 U/L (10-68); BILIRUBIN - TOTAL 0.37 mg/dL (0.2-1.3); CALC OSMOLALITY 264 mosm/kg (275-300); CALCIUM 8.2 mg/dL (8.5-10.1); CARBON DIOXIDE 28.1 mmol/L (21.0-32.0); CHLORIDE - SERUM 102 mmol/L (98-107); CREATININE - SERUM 0.7 mg/dL (0.6-1.3); GLUCOSE 88 mg/dL (74-106); POTASSIUM - SERUM 4.2 mmol/L (3.5-5.1); SODIUM 134 mmol/L (136-145); UREA NITROGEN 6 mg/dL (7-18); eGFR NON AFRICAN AMERICAN > 90 mL/min (90-120)
--- NOTE | 2019-08-20 08:17 | NUR ---
AWAKE AND ALERT. ORIENTED X3. NO C/O AT THIS TIME. LUNGS ARE CLEAR BILATERLLY, NO COUGH NOTED. SKIN IS INTACT WITHOUT REDNESS EXCEPT INCISION TO RIGHT FOOT WHICH HAS A DRY INTACT DRESSING IN PLACE. IV TO RIGHT WRIST IS PATENT WITHOUT REDNESS AT INSERTION SITE. DENIES NEEDS EXCEPT FOR FOOD. HE IS HUNGRY. WILL MONITOR.
[2019-08-20 08:53] VITALS: BP 132/97
--- NOTE | 2019-08-20 10:00 | NUR ---
RESTING QUIETLY IN BED AFTER AMBULATION IN AMIN WITH PT USING RW. DENIES NEEDS.
[2019-08-20 12:13] VITALS: BP 139/94
--- NOTE | 2019-08-20 12:30 | NUR ---
RESTING IN BED EATING LUNCH. DENIES NEEDS.
[2019-08-20 15:47] LABS: CREATININE - URINE 13.3 mg/dL (30-125); PROTEIN - URINE 8.7 mg/dL (0.0-11.9)
[2019-08-20 16:58] VITALS: BP 140/93
--- NOTE | 2019-08-20 19:21 | NUR ---
ATE ALL OF SUPPER. DENIES NEEDS. NO CHANGES NOTED.
--- NOTE | 2019-08-20 19:36 | MORECARE ---
CASE MANAGEMENT DISCHARGE SUMMARY PATIENT: PALLAVI UMAÑA UNIT: [id number] ADM DATE: 08/13/19 AGE: 54 : 69 SEX: M ROOM/BED: D.2203 AUTHOR: ALEXANDER,DOC PHYSICIAN: REFERRING PHYSICIAN: ROXANNE ALTMAN MD DATE OF SERVICE: 08/20/19 Discharge Plan Patient Name: PALLAVI UMAÑA Facility: [facility]:[place] : 1965 Planned Disposition: Anticipated Discharge Date: Discharge Date: Expected LOS: Initial Reviewer: [email or web address] Initial Review Date: 08/13/2019 Generated: 08/20/19 8:35 pm Comments DCP- Discharge Planning Updated by [email or web address]: Melany Dixon on 08/20/19 6:[address] CM received a call from Donna @ [facility]. She stated that patient's diagnosis doesn't meet for inpatient rehab. CM explained that he has an order for vascular surgery to see patient and eval for potential surgery. Donna stated that if patient has to have another surgery to send another referral and they will check to see if they will be able to accept. DCP- Discharge Planning Updated by [email or web address]: Melany Dixon on 08/17/19 5:[address] CM spoke with patient to see if would be interested in rehab at [facility] if he still has days available when discharged. Patient did agree to Rehab and CONSTANTINO signed he doesn't want Home health at this time. CM faxed records to [facility]. Patient states he has all the DME equipment he needs. CM will continue to follow and assist as needed with discharge planning needs. DCP- Discharge Planning Updated by [email or web address]: Melany Dixon on 08/14/19 5:[address] Patient Name: PALLAVI UMAÑA Admission Status: ER Accout number: [id number] Admission Date: 08-13-2019 : 1965 Admission Diagnosis: Attending: CRUZITO Current LOS: 1 Anticipated DC Date: Planned Disposition: Primary Insurance: MEDICAID [place] Discharge Planning Comments: CM met with patient to complete initial dc planning assessment. CM educated patient on the CM role and verbal consent given by patient to complete assessment. Patient lives at home with his sister Marisol At discharge patient plans to return home and feels this is a safe discharge. CM discussed availability of home health, rehab services, and medical equipment. Patient denied known discharge needs at this time. Patient states he has a walker. CM will probably need to re-eval if patient has surgery. CM will continue to follow and will assist as needed with dc plans/needs. Stenciling Machine Tender: Melany Dixon DCPIA - Discharge Planning Initial Assessment Updated by [email or web address]: Melany Dixon on 08/14/19 6:29 pm * Is the patient Alert and Oriented? Yes * How many steps to enter\exit or inside your home? * PCP unknown ? CASANOVA * Pharmacy [place] * Preadmission Environment Home with Family * ADLs Independent * Equipment Walker * List name and contact numbers for known caregivers / representatives who currently or will assist patient after discharge: Marisol Umaña - sister - [phone] * Verbal permission to speak to the caregivers and representatives has been obtained from the patient. Yes * Community resources currently utilized None * Additional services required to return to the preadmission environment? No * Can the patient safely return to the preadmission environment? Yes * Has this patient been hospitalized within the prior 30 days at any hospital? Yes Coverage Notice Reviewer: [email or web address] - Melany Dixon Notice Issued Date-Time: 08/17/2019 18:31 Notice Type: Patient Choice Letter Notice Delivered To: Patient Relationship to Patient: Self Boiler Cleaner Name: Delivery Method: HAND - Hand Delivered Mylene Days: Prior Verbal Notification: Recipient Understood Notice: Yes Recipient Signature: Yes Med Rec Note Co-signed by Attending: Coverage Notice Comment: [facility] Last DP export: 08/17/19 5:43 pm Patient Name: PALLAVI UMAÑA Page [phone] at 1936 All edits/amendments must be made on the electronic document DICTATION DATE: 08/20/191934 CONTRACT NEGOTIATOR: WHIT 08/20/191934 RPT#: [id number] DC DATE: STATUS: ADM IN [facility] [address] [place] [address] END OF REPORT
[2019-08-20 20:00] VITALS: BP 149/101
--- NOTE | 2019-08-20 22:39 | NUR ---
CALL TO CAMPAIGN ADVISOR MORPHINE 30MG/30ML D/C VIA TIME OUT ORDER TO RESTART ORDERSPER CAMPAIGN ADVISOR.
[2019-08-21] VITALS: BP 142/98
--- NOTE | 2019-08-21 03:15 | NUR ---
PATIENT IS ALERT AND ORENTED ABLE TO VOICE NEEDS AND WANTS TO STAFF. IV TO RIGHT WRIST WITH NS AT 30ML/HR AND MORPHINE CAR STOWER IN PLACE AND PATEN . PAIN IS CONTROLLED WITH CAR STOWER PUMP. DRESSING TO LEFT FOOT IN PLACE CDI. CALL L;IGHT AND WATER IN REACH.
[2019-08-21 04:00] VITALS: BP 135/87
[2019-08-21 04:30] LABS: ALBUMIN 1.8 g/dL (3.4-5.0); ALKALINE PHOSPHATASE 445 U/L (30-120); ALT (SGPT) 33 U/L (10-68); BILIRUBIN - TOTAL 0.27 mg/dL (0.2-1.3); CALC OSMOLALITY 266 mosm/kg (275-300); CALCIUM 8.3 mg/dL (8.5-10.1); CARBON DIOXIDE 32.3 mmol/L (21.0-32.0); CHLORIDE - SERUM 100 mmol/L (98-107); CREATININE - SERUM 0.8 mg/dL (0.6-1.3); GLUCOSE 85 mg/dL (74-106); PROTEIN - SERUM 6.1 g/dL (6.4-8.2); SODIUM 135 mmol/L (136-145); UREA NITROGEN 7 mg/dL (7-18); eGFR NON AFRICAN AMERICAN > 90 mL/min (90-120)
[2019-08-21 04:31] LABS: BASOPHILS 0.6 % (0-2); HEMATOCRIT 33.8 % (42.0-54.0); HEMOGLOBIN 10.4 g/dL (13.5-17.5); IMMATURE GRANULOCYTES 0.8 % (0-5); LYMPHOCYTES 7.4 % (15-50); MCH 28.2 pg (26.0-34.0); MCHC 30.8 g/dL (31.0-37.0); MCV 91.6 fL (80.0-100.0); MONOCYTES 6.6 % (2-11); NEUTROPHILS 78.6 % (40-80); PLATELET COUNT 911 10x3/uL (130-400); RBC 3.69 10x6/uL (4.20-6.10); WBC 10.6 10x3/uL (4.8-10.8)
[2019-08-21 07:47] VITALS: BP 128/83
--- NOTE | 2019-08-21 09:39 | NUR ---
Nutrition follow-up: Diet: BRANDO PO intake 100% of last 6 meals Labs reviewed; ablumin very low-1.8 Wt: 135# +BM PO intake good at this time Recommend adding Dante nutritional supplement, 1 pkt BID mixed in juice to aid in wound healing. RDN following.
[2019-08-21 12:13] VITALS: BP 124/83
[2019-08-21 14:17] LABS: ERYTHROCYTE SEDIMENTATION RATE 39 mm/hr (0-20)
[2019-08-21 16:14] VITALS: BP 132/92
[2019-08-21 21:55] VITALS: BP 135/96
--- NOTE | 2019-08-21 23:28 | NUR ---
1915)REC'D CHGE OF SHIFT WALKING ROUNDS SITTING ON SIDE OF BED.ACEWRAP DRSG DRY AND INTACT LEFT FOOT.2+ EDEMA WITH REDNESS RIGHT LOWER EXT.PEDAL PULSE C/O SOME DECREASE IN SENSATION WIGGLES TOES AND DORSIFLEXES WITHOUT DIFFICULTY. ENCOURAGED TO NOT LET EXT. HANG ELEVATED TO HELP REDUCE SWELLING VOICES UNDERSTANDING. WILL CONTINUE TO MONITOR FOR ANY CHGES NEUROVASCULAR STATUS AND FOLLOW CURRENT PLAN OF CARE.
[2019-08-22 00:55] VITALS: BP 147/96
--- NOTE | 2019-08-22 05:11 | NUR ---
I have reviewed this patient and I concur with the Shift Assessment completed by the Licensed Practical Nurse today this shift.
[2019-08-22 05:46] LABS: ALBUMIN 1.9 g/dL (3.4-5.0); ALKALINE PHOSPHATASE 617 U/L (30-120); BILIRUBIN - TOTAL 0.42 mg/dL (0.2-1.3); CALC OSMOLALITY 272 mosm/kg (275-300); CALCIUM 8.5 mg/dL (8.5-10.1); CARBON DIOXIDE 30.3 mmol/L (21.0-32.0); CHLORIDE - SERUM 100 mmol/L (98-107); CREATININE - SERUM 0.7 mg/dL (0.6-1.3); GLUCOSE 75 mg/dL (74-106); POTASSIUM - SERUM 3.7 mmol/L (3.5-5.1); PROTEIN - SERUM 6.2 g/dL (6.4-8.2); SODIUM 138 mmol/L (136-145); UREA NITROGEN 6 mg/dL (7-18); eGFR NON AFRICAN AMERICAN > 90 mL/min (90-120)
[2019-08-22 05:55] LABS: ALT (SGPT) 50 U/L (10-68)
[2019-08-22 06:37] LABS: HEMATOCRIT 34.9 % (42.0-54.0); HEMOGLOBIN 10.3 g/dL (13.5-17.5); MCH 27.5 pg (26.0-34.0); MCHC 29.5 g/dL (31.0-37.0); MCV 93.3 fL (80.0-100.0); MEAN PLATELET VOLUME 10.3 fL (7.4-10.4); RBC 3.74 10x6/uL (4.20-6.10); RDW 18.6 % (11.5-14.5); WBC 10.4 10x3/uL (4.8-10.8)
--- NOTE | 2019-08-22 06:43 | OP ---
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 PROCEDURE: Left mid foot amputation. SURGEON: Christa Puga MD WOOL HANDLER: TEDDY Pardo. ANESTHESIOLOGY: Jas Maxwell MD INTRAOPERATIVE COMPLICATIONS: None. SUMMARY OF PATHOLOGIC FINDINGS: Upon transmetatarsal amputation, the patient was found to have a paucity of blood flow. For this reason, the decision was made on the table to proceed with a mid foot amputation. The metatarsals were excised in their entirety with the exception of the base of the second leaving the keystones affect in place. OPERATIVE SUMMARY IN DETAIL: After obtaining the appropriate preoperative orthopedic surgery consent as well as anesthetic consultation, evaluation and clearance, the patient was brought to the operating room and placed on the operating table in a supine position. After adequate general laryngeal mask airway was administered, the patient's left lower extremity was prepped and draped in routine sterile fashion. A fish mouth incision was made in preparation for a transmetatarsal amputation. The patient's plantar aspect was cold for the usual transmetatarsal flap. A fishmouth type incision was made, and upon sagittal excision at transmetatarsal level, there was a paucity of bleeding and it was felt that this was likely not to heal. Therefore, the incision was taken back to transmit the first TMT was disarticulated along with the third, fourth and fifth. The second was excised and left as a keystone. Having completed this, copious irrigation was followed by closure of the mid foot amputation. This was done by both myself and TEDDY Pardo. Having completed this, the patient was placed in sterile dressings. He was awakened and taken to the recovery room in stable condition. All final needle and sponge counts were correct. TRANSINT:[id number] Voice Confirmation ID: [id number] DOCUMENT ID: [id number] CHRISTA PUGA MD at 0643 CC: [id number] DICTATION DATE: 08/19/19 1018 AUTO BATTERY BUILDER: 08/19/19 2115 ADM IN [facility] [address] [place] [id number]
[2019-08-22 07:00] LABS: PLATELET COUNT 1146 10x3/uL (130-400)
--- NOTE | 2019-08-22 07:28 | NUR ---
PT SITTING UP IN BED WATCHING TV. RESP EVEN AND UNLABORED. PT REPORTS PAIN 7/10 AT THIS TIME. IV TO RIGHT WRIST WITH NS @ 30ML/HR, MORPHINE PLANT PACKER INTACT AND INFUSING VIA PUMPS. SITE WITHOUT REDNESS OR EDEMA. DRESSING C/D/I TO LEFT LOWER EXTREMITY. DENIES FURTHER NEEDS AT THIS TIME. CL WITHIN REACH. ENCOURAGED TO CALL WITH NEEDS. CONTINUE POC
[2019-08-22 07:40] LABS: EOSINOPHILS 9 % (0-7); LYMPHOCYTES 7 % (15-50); MONOCYTES 5 % (2-11); NEUTROPHILS 78 % (40-80); PLATELET ESTIMATE INCREASED
[2019-08-22 08:56] VITALS: BP 124/81
--- NOTE | 2019-08-22 09:20 | NUR ---
PT RESTING QUIETLY IN BED. MORNING MEDICATIONS ADMINISTERED AT THIS TIME. ALCOHOL AND DRUG COUNSELOR DISCONTINUED PER MD ORDERS. DENIES FURTHER NEEDS AT THIS TIME. CL WITHIN REACH. ENCOURAGED TO CALL WITH NEEDS.
--- NOTE | 2019-08-22 11:33 | NUR ---
PT CALLED OUT FOR ASSISTANCE TO BATHROOM. STANDBY ASSISTANCE WITH AMBULATING WITH WALKER. ADMINISTERED PAIN MEDICATION AT THIS TIME FOR PAIN. CL WITHIN REACH. ENCOURAGED TO CALL WITH NEEDS
--- NOTE | 2019-08-22 13:20 | NUR ---
PT AMBULATING IN HALLWAY WITH PT. PT BETSY WELL.
[2019-08-22 13:41] VITALS: BP 138/94
[2019-08-22 18:29] VITALS: BP 154/95
--- NOTE | 2019-08-22 20:40 | NUR ---
MEDICATED WITH PERCOCET FOR C/O PAIN IN LT FOOT. DRSG WITH ITZEL NOTED TO LT FOOT. AMB WITH WALKER. ALERT AND ORIENTED X4. RESP EVEN AND NONLABORED. SALINE LOCK NOTED TO RT WRIST. CL IN REACH.
[2019-08-22 21:49] VITALS: BP 137/89
--- NOTE | 2019-08-23 01:20 | NUR ---
MEDICATED WITH PERCOCET FOR C/O H/A. CL IN REACH. NO DISTRESS.
[2019-08-23 01:49] VITALS: BP 120/79
[2019-08-23 04:51] LABS: BASOPHILS 0.9 % (0-2); EOSINOPHILS 7.6 % (0-7); HEMATOCRIT 34.2 % (42.0-54.0); HEMOGLOBIN 10.4 g/dL (13.5-17.5); IMMATURE GRANULOCYTES 0.6 % (0-5); LYMPHOCYTES 9.4 % (15-50); MCHC 30.4 g/dL (31.0-37.0); MCV 91.9 fL (80.0-100.0); MEAN PLATELET VOLUME 9.7 fL (7.4-10.4); MONOCYTES 7.6 % (2-11); NEUTROPHILS 73.9 % (40-80); RBC 3.72 10x6/uL (4.20-6.10); RDW 18.3 % (11.5-14.5); WBC 11.1 10x3/uL (4.8-10.8)
[2019-08-23 04:53] LABS: PLATELET COUNT 1216 10x3/uL (130-400)
[2019-08-23 04:56] LABS: ALBUMIN 1.9 g/dL (3.4-5.0); ALKALINE PHOSPHATASE 537 U/L (30-120); ALT (SGPT) 55 U/L (10-68); BILIRUBIN - TOTAL 0.27 mg/dL (0.2-1.3); CALCIUM 8.6 mg/dL (8.5-10.1); CARBON DIOXIDE 32.3 mmol/L (21.0-32.0); CHLORIDE - SERUM 100 mmol/L (98-107); GLUCOSE 74 mg/dL (74-106); POTASSIUM - SERUM 3.9 mmol/L (3.5-5.1); PROTEIN - SERUM 6.3 g/dL (6.4-8.2); SODIUM 138 mmol/L (136-145)
[2019-08-23 05:00] LABS: CALC OSMOLALITY 273 mosm/kg (275-300); CREATININE - SERUM 0.9 mg/dL (0.6-1.3); UREA NITROGEN 9 mg/dL (7-18); eGFR NON AFRICAN AMERICAN > 90 mL/min (90-120)
[2019-08-23 05:27] LABS: PLATELET ESTIMATE INCREASED
--- NOTE | 2019-08-23 05:30 | NUR ---
REQUESTING SNACKS. GIVEN PUDDING. NO DISTRESS. CL IN REACH.
[2019-08-23 06:01] VITALS: BP 133/89
--- NOTE | 2019-08-23 08:00 | NUR ---
PATIENT LAYING ON RIGHT SIDE IN BED. STATES PAIN IS A 5 OUT OF 10 ON THE PAIN SCALE. NO FURTHER NEEDS AT THIS TIME. WCTM.
[2019-08-23 09:37] VITALS: BP 127/76
--- NOTE | 2019-08-23 12:42 | MORECARE ---
CASE MANAGEMENT DISCHARGE SUMMARY PATIENT: PALLAVI UMAÑA UNIT: [id number] ADM DATE: 08/13/19 AGE: 54 : 69 SEX: M ROOM/BED: D.2203 AUTHOR: ALEXANDER,DOC PHYSICIAN: REFERRING PHYSICIAN: ROXANNE ALTMAN MD DATE OF SERVICE: 08/23/19 Discharge Plan Patient Name: PALLAVI UMAÑA Facility: [facility]:[place] : 1965 Planned Disposition: Anticipated Discharge Date: Discharge Date: Expected LOS: Initial Reviewer: [id number] Initial Review Date: 08/13/2019 Generated: 08/23/19 1:41 pm DCP- Discharge Planning Updated by [id number]: Melany Dixon on 08/20/19 6:[address] CM received a call from Donna @ [facility]. She stated that patient's diagnosis doesn't meet for inpatient rehab. CM explained that he has an order for vascular surgery to see patient and eval for potential surgery. Donna stated that if patient has to have another surgery to send another referral and they will check to see if they will be able to accept. DCP- Discharge Planning Updated by [email or web address]: Melany Dixon on 08/17/19 5:[address] CM spoke with patient to see if would be interested in rehab at [facility] if he still has days available when discharged. Patient did agree to Rehab and CONSTANTINO signed he doesn't want Home health at this time. CM faxed records to [facility]. Patient states he has all the DME equipment he needs. CM will continue to follow and assist as needed with discharge planning needs. DCP- Discharge Planning Updated by [email or web address]: Melany Dixon on 08/14/19 5:[address] Patient Name: PALLAVI UMAÑA Admission Status: ER Accout number: [id number] Admission Date: 08-13-2019 : 1965 Admission Diagnosis: Attending: CRUZITO Current LOS: 1 Anticipated DC Date: Planned Disposition: Primary Insurance: MEDICAID [place] Discharge Planning Comments: CM met with patient to complete initial dc planning assessment. CM educated patient on the CM role and verbal consent given by patient to complete assessment. Patient lives at home with his sister Marisol At discharge patient plans to return home and feels this is a safe discharge. CM discussed availability of home health, rehab services, and medical equipment. Patient denied known discharge needs at this time. Patient states he has a walker. CM will probably need to re-eval if patient has surgery. CM will continue to follow and will assist as needed with dc plans/needs. Sanitarian Aide: Melany Dixon DCPIA - Discharge Planning Initial Assessment Updated by [email or web address]: Melany Dixon on 08/14/19 6:29 pm * Is the patient Alert and Oriented? Yes * How many steps to enter\exit or inside your home? * PCP unknown ? MEDRANO * Pharmacy [place] * Preadmission Environment Home with Family * ADLs Independent * Equipment Walker * List name and contact numbers for known caregivers / representatives who currently or will assist patient after discharge: Marisol Umaña - sister - [phone] * Verbal permission to speak to the caregivers and representatives has been obtained from the patient. Yes * Community resources currently utilized None * Additional services required to return to the preadmission environment? No * Can the patient safely return to the preadmission environment? Yes * Has this patient been hospitalized within the prior 30 days at any hospital? Yes External Providers [facility] [place] [facility] Medrano Next Contact Date: Service Request Date: Service Type: Resolution: Reviewer: Comments: Coverage Notice Reviewer: [id number] - Melany Zack Notice Issued Date-Time: 08/17/2019 18:31 Notice Type: Patient Choice Letter Notice Delivered To: Patient Relationship to Patient: Self Food General Manager Name: Delivery Method: HAND - Hand Delivered Mylene Days: Prior Verbal Notification: Recipient Understood Notice: Yes Recipient Signature: Yes Med Rec Note Co-signed by Attending: Coverage Notice Comment: [facility] Reviewer: [id number] - Jodi Fleming Notice Issued Date-Time: 08/23/2019 12:38 Notice Type: Patient Choice Letter Notice Delivered To: Patient Relationship to Patient: Self Food General Manager Name: Delivery Method: HAND - Hand Delivered Mylene Days: Prior Verbal Notification: Recipient Understood Notice: Yes Recipient Signature: Yes Med Rec Note Co-signed by Attending: Coverage Notice Comment: CONSTANTINO for [facility] Last DP export: 08/20/19 6:36 pm Patient Name: PALLAVI UMAÑA Page [phone] at 1242 All edits/amendments must be made on the electronic document DICTATION DATE: 08/23/191240 MANUFACTURED BUILDINGS REPAIRER: WHIT 08/23/19 124 RPT#: [id number] DC DATE: STATUS: ADM IN [facility] [address] [place] [address] END OF REPORT
--- NOTE | 2019-08-23 12:56 | MORECARE ---
CASE MANAGEMENT DISCHARGE SUMMARY PATIENT: PALLAVI UMAÑA UNIT: [id number] ADM DATE: 08/13/19 AGE: 54 : 69 SEX: M ROOM/BED: D.2203 AUTHOR: ALEXANDER,DOC PHYSICIAN: REFERRING PHYSICIAN: ROXANNE ALTMAN MD DATE OF SERVICE: 08/23/19 Discharge Plan Patient Name: PALLAVI UMAÑA Facility: [facility]:[place] : 1965 Planned Disposition: Anticipated Discharge Date: Discharge Date: Expected LOS: Initial Reviewer: [id number] Initial Review Date: 08/13/2019 Generated: 08/23/19 1:55 pm Comments DCP- Discharge Planning Updated by [id number]: Jodi Fleming on 08/23/19 11:[address] Spoke with Gerri at [facility] in [place] and clinical faxed. I informed Gerri that I did not anticipate a discharge today, that he is having arteriogram and PIPIDA scan today. CM will continue to follow and assist with discharge planning/needs. Patient's PCP is Mari Calzada at [address] [place] [address] in [place]. CM verified address and phone number. CM spoke with sister per patient's request and she agrees with home health with [facility]. DCP- Discharge Planning Updated by [email or web address]: Melany Dixon on 08/20/19 6:[address] CM received a call from Donna @ [facility]. She stated that patient's diagnosis doesn't meet for inpatient rehab. CM explained that he has an order for vascular surgery to see patient and eval for potential surgery. Donna stated that if patient has to have another surgery to send another referral and they will check to see if they will be able to accept. DCP- Discharge Planning Updated by [id number]: Melany Dixon on 08/17/19 5:[address] CM spoke with patient to see if would be interested in rehab at [facility] if he still has days available when discharged. Patient did agree to Rehab and CONSTANTINO signed he doesn't want Home health at this time. CM faxed records to [facility]. Patient states he has all the DME equipment he needs. CM will continue to follow and assist as needed with discharge planning needs. DCP- Discharge Planning Updated by [email or web address]: Melany Dixon on 08/14/19 5:[address] Patient Name: PALLAVI UMAÑA Admission Status: ER Accout number: [id number] Admission Date: 08-13-2019 : 1965 Admission Diagnosis: Attending: CRUZITO Current LOS: 1 Anticipated DC Date: Planned Disposition: Primary Insurance: MEDICAID [place] Discharge Planning Comments: CM met with patient to complete initial dc planning assessment. CM educated patient on the CM role and verbal consent given by patient to complete assessment. Patient lives at home with his sister Marisol At discharge patient plans to return home and feels this is a safe discharge. CM discussed availability of home health, rehab services, and medical equipment. Patient denied known discharge needs at this time. Patient states he has a walker. CM will probably need to re-eval if patient has surgery. CM will continue to follow and will assist as needed with dc plans/needs. Supervisor [employer]: Melany Dixon DCPIA - Discharge Planning Initial Assessment Updated by [email or web address]: Melany Dixon on 08/14/19 6:29 pm * Is the patient Alert and Oriented? Yes * How many steps to enter\exit or inside your home? * PCP unknown ? CASANOVA * Pharmacy [place] * Preadmission Environment Home with Family * ADLs Independent * Equipment Walker * List name and contact numbers for known caregivers / representatives who currently or will assist patient after discharge: Marisol Umaña - sister - [phone] * Verbal permission to speak to the caregivers and representatives has been obtained from the patient. Yes * Community resources currently utilized None * Additional services required to return to the preadmission environment? No * Can the patient safely return to the preadmission environment? Yes * Has this patient been hospitalized within the prior 30 days at any hospital? Yes Coverage Notice Reviewer: [id number] - Melany Dixon Notice Issued Date-Time: 08/17/2019 18:31 Notice Type: Patient Choice Letter Notice Delivered To: Patient Relationship to Patient: Self Warehouse Delivery Driver Name: Delivery Method: HAND - Hand Delivered Mylene Days: Prior Verbal Notification: Recipient Understood Notice: Yes Recipient Signature: Yes Med Rec Note Co-signed by Attending: Coverage Notice Comment: [facility] Reviewer: [id number] Chris Fleming Notice Issued Date-Time: 08/23/2019 12:38 Notice Type: Patient Choice Letter Notice Delivered To: Patient Relationship to Patient: Self Warehouse Delivery Driver Name: Delivery Method: HAND - Hand Delivered Mylene Days: Prior Verbal Notification: Recipient Understood Notice: Yes Recipient Signature: Yes Med Rec Note Co-signed by Attending: Coverage Notice Comment: CON[facility] for [facility] Last DP export: 08/23/19 11:42 am Patient Name: PALLAVI UMAÑA Page [phone] at 1256 All edits/amendments must be made on the electronic document DICTATION DATE: 08/23/19 1255 PARKS RECREATION DIRECTOR: WHIT 08/23/19 1255 RPT#: [id number] DC DATE: STATUS: ADM IN [facility] [address] [place] [address] END OF REPORT
[2019-08-23 13:42] VITALS: BP 129/81
[2019-08-23 13:53] LABS: APTT 46.2 SECONDS (22.8-39.4); INR 1.1 (0.85-1.17); PROTIME 14.2 SECONDS (11.6-15.0)
--- NOTE | 2019-08-23 14:32 | NUR ---
PATIENT NPO AT THIS TIME. WAITING ON PIPIDA AND US OF ABD. REQUESTED AND RECEIVED LEMON SWABS. CL IN REACH WCTM
[2019-08-23 20:00] VITALS: BP 132/91
[2019-08-24] VITALS: BP 128/90
[2019-08-24 04:00] VITALS: BP 135/84
--- NOTE | 2019-08-24 08:20 | NUR ---
SPOKE WITH AKSHAT COOK WITH DR BURDEN ABOUT PT BEING NPO. WAS TOLD NO PROCEDURES WERE TAKING PLACE TO LET HIM EAT.
[2019-08-24 08:43] LABS: BASOPHILS 0.8 % (0-2); HEMOGLOBIN 10.4 g/dL (13.5-17.5); IMMATURE GRANULOCYTES 0.7 % (0-5); LYMPHOCYTES 8.8 % (15-50); MCH 28.3 pg (26.0-34.0); MCHC 30.6 g/dL (31.0-37.0); MCV 92.4 fL (80.0-100.0); MEAN PLATELET VOLUME 9.9 fL (7.4-10.4); MONOCYTES 5.4 % (2-11); NEUTROPHILS 76.3 % (40-80); RBC 3.68 10x6/uL (4.20-6.10); RDW 18.2 % (11.5-14.5); WBC 11.6 10x3/uL (4.8-10.8)
[2019-08-24 08:45] LABS: PLATELET COUNT 1324 10x3/uL (130-400)
[2019-08-24 08:48] LABS: ALBUMIN 1.9 g/dL (3.4-5.0); ALKALINE PHOSPHATASE 412 U/L (30-120); ALT (SGPT) 43 U/L (10-68); CALC OSMOLALITY 270 mosm/kg (275-300); CALCIUM 8.6 mg/dL (8.5-10.1); CARBON DIOXIDE 28.9 mmol/L (21.0-32.0); CHLORIDE - SERUM 102 mmol/L (98-107); CREATININE - SERUM 0.8 mg/dL (0.6-1.3); GLUCOSE 82 mg/dL (74-106); POTASSIUM - SERUM 3.8 mmol/L (3.5-5.1); PROTEIN - SERUM 6.1 g/dL (6.4-8.2); SODIUM 137 mmol/L (136-145); UREA NITROGEN 8 mg/dL (7-18); eGFR NON AFRICAN AMERICAN > 90 mL/min (90-120)
[2019-08-24 09:39] VITALS: BP 144/97
[2019-08-24] MEDS ORDERED: PERCOCET 10-321 EAC1 PO (09:39)
--- NOTE | 2019-08-24 11:04 | NUR ---
PATIENT LAYING ON RIGHT SIDE. GAVE PAIN MEDICATION SO WE CAN DO THE DRESSING CHANGE. NO NEEDS AT THIS TIME. CL IN REACH. WCTM
[2019-08-24 12:48] VITALS: BP 146/97
--- NOTE | 2019-08-24 15:08 | NUR ---
CALLED DR THOMAS OFFICE TO LET HER KNOW THE AVAILABILITY OF AGRYLIN WAS ON BACK ORDER BY THE MANUFACTOR AND WOULD MAY BE AVAILABLE September. AWAITING FURTHER INSTRUCTIONS.
[2019-08-24 15:47] VITALS: BP 137/89
[2019-08-24 20:00] VITALS: BP 145/97
[2019-08-25] VITALS: BP 151/82
[2019-08-25 04:00] VITALS: BP 167/74
--- NOTE | 2019-08-25 06:30 | NUR ---
I have reviewed this patient and I concur with the Shift Assessment completed by the Licensed Practical Nurse today this shift.
[2019-08-25 06:41] LABS: BASOPHILS 0.8 % (0-2); EOSINOPHILS 8.1 % (0-7); HEMOGLOBIN 10.7 g/dL (13.5-17.5); IMMATURE GRANULOCYTES 0.7 % (0-5); LYMPHOCYTES 7.8 % (15-50); MCH 28.5 pg (26.0-34.0); MCHC 30.6 g/dL (31.0-37.0); MCV 93.1 fL (80.0-100.0); MEAN PLATELET VOLUME 9.8 fL (7.4-10.4); MONOCYTES 6.2 % (2-11); NEUTROPHILS 76.4 % (40-80); RBC 3.76 10x6/uL (4.20-6.10); RDW 18.3 % (11.5-14.5); WBC 13.8 10x3/uL (4.8-10.8)
[2019-08-25 06:42] LABS: CALC OSMOLALITY 277 mosm/kg (275-300); CALCIUM 8.8 mg/dL (8.5-10.1); CHLORIDE - SERUM 106 mmol/L (98-107); CREATININE - SERUM 0.8 mg/dL (0.6-1.3); GLUCOSE 109 mg/dL (74-106); SODIUM 139 mmol/L (136-145); UREA NITROGEN 9 mg/dL (7-18); eGFR NON AFRICAN AMERICAN > 90 mL/min (90-120)
[2019-08-25 06:46] LABS: PLATELET COUNT 1390 10x3/uL (130-400)
[2019-08-25 06:47] LABS: POTASSIUM - SERUM 5.3 mmol/L (3.5-5.1)
--- NOTE | 2019-08-25 08:00 | NUR ---
PATIENT IN BED WITH IV INTACT. NO COMPLAINTS OR SIGNS OF DISTRESS. ASSESSMENT COMPLETE. DRESSING TO RIGHT FOOT CDI. CALL LIGHT WITHIN REACH.
[2019-08-25 09:00] VITALS: BP 148/65
--- NOTE | 2019-08-25 12:10 | NUR ---
PATIENT SITTING UP ON THE SIDE OF THE BED EATING. IV INTACT. NO COMPLAINTS OR SIGNS OF DISTRESS. CALL LIGHT WITHIN REACH.
--- NOTE | 2019-08-25 14:44 | NUR ---
PATIENT IN BED WITH EYES CLOSED RESTING QUIETLY. IV INTACT. CALL LIGHT WITHIN REACH.
--- NOTE | 2019-08-25 19:00 | NUR ---
BEDSIDE REPORT RECEIVED AND CARE OF PT ASSUMED. PT LYING IN HIGH KAM'S POSITION WATCHING TV. IV TO RIGHT WRIST PATENT WITH NS INFUSING AT 30 ML/HR. TELEMETRY IN PLACE AND READING 94 SR AT THIS ASSESSMENT. DRESSING LEFT FOOT CLEAN AND DRY.
[2019-08-25 20:00] VITALS: BP 138/95
--- NOTE | 2019-08-25 20:14 | NUR ---
HS MEDICATIONS GIVEN. WILL CONTINUE TO MONITOR FOR NEEDS.
[2019-08-26] VITALS: BP 137/89
[2019-08-26 04:00] VITALS: BP 148/98
[2019-08-26 06:24] LABS: BASOPHILS 1.1 % (0-2); EOSINOPHILS 10.3 % (0-7); HEMATOCRIT 36.4 % (42.0-54.0); HEMOGLOBIN 11.3 g/dL (13.5-17.5); IMMATURE GRANULOCYTES 1.1 % (0-5); LYMPHOCYTES 8.5 % (15-50); MCH 28.4 pg (26.0-34.0); MCV 91.5 fL (80.0-100.0); MEAN PLATELET VOLUME 9.7 fL (7.4-10.4); MONOCYTES 5.6 % (2-11); NEUTROPHILS 73.4 % (40-80); RBC 3.98 10x6/uL (4.20-6.10); RDW 18.1 % (11.5-14.5); WBC 13.2 10x3/uL (4.8-10.8)
[2019-08-26 06:25] LABS: PLATELET COUNT 1308 10x3/uL (130-400)
[2019-08-26 06:39] LABS: CALC OSMOLALITY 275 mosm/kg (275-300); CALCIUM 8.9 mg/dL (8.5-10.1); CARBON DIOXIDE 26.1 mmol/L (21.0-32.0); CHLORIDE - SERUM 103 mmol/L (98-107); CREATININE - SERUM 0.8 mg/dL (0.6-1.3); GLUCOSE 87 mg/dL (74-106); POTASSIUM - SERUM 4.6 mmol/L (3.5-5.1); SODIUM 139 mmol/L (136-145); UREA NITROGEN 10 mg/dL (7-18); eGFR NON AFRICAN AMERICAN > 90 mL/min (90-120)
--- NOTE | 2019-08-26 07:54 | NUR ---
RESTING IN BED, NO DISTRESS NOTED, IV INFUSING, DRESSING TO LEFT FOOT CLEAN AND DRY, CONT TO MONITOR PAIN
[2019-08-26 08:30] VITALS: BP 148/95
[2019-08-26 17:50] VITALS: BP 130/92
--- NOTE | 2019-08-26 19:37 | NUR ---
PATIENT RESTING IN BED WITH NO S/S OF DISTRESS AT THIS TIME. BROUGHT PATIENT A SNACK PER HIS REQUEST. PATIENT DENIES OTHER NEEDS. ENCOURAGED PATIENT TO CALL IF HE HAS NEEDS. WILL CONTINUE TO MONITOR.
[2019-08-26 22:30] VITALS: BP 137/90
[2019-08-27 01:25] VITALS: BP 141/87
[2019-08-27 04:06] LABS: CALC OSMOLALITY 277 mosm/kg (275-300); CALCIUM 8.9 mg/dL (8.5-10.1); CARBON DIOXIDE 27.9 mmol/L (21.0-32.0); CHLORIDE - SERUM 103 mmol/L (98-107); CREATININE - SERUM 0.9 mg/dL (0.6-1.3); GLUCOSE 93 mg/dL (74-106); POTASSIUM - SERUM 4.1 mmol/L (3.5-5.1); SODIUM 139 mmol/L (136-145); UREA NITROGEN 12 mg/dL (7-18); eGFR NON AFRICAN AMERICAN > 90 mL/min (90-120)
[2019-08-27 04:13] VITALS: BP 144/91
[2019-08-27 04:13] LABS: BASOPHILS 1.2 % (0-2); EOSINOPHILS 12.3 % (0-7); HEMATOCRIT 36.3 % (42.0-54.0); HEMOGLOBIN 11.3 g/dL (13.5-17.5); IMMATURE GRANULOCYTES 1.3 % (0-5); MCH 28.6 pg (26.0-34.0); MCHC 31.1 g/dL (31.0-37.0); MCV 91.9 fL (80.0-100.0); MEAN PLATELET VOLUME 9.8 fL (7.4-10.4); MONOCYTES 5.4 % (2-11); NEUTROPHILS 70.8 % (40-80); RBC 3.95 10x6/uL (4.20-6.10); RDW 18.4 % (11.5-14.5); WBC 14.2 10x3/uL (4.8-10.8)
[2019-08-27 04:17] LABS: PLATELET COUNT 1552 10x3/uL (130-400)
[2019-08-27 07:49] LABS: APTT 33.6 SECONDS (22.8-39.4); INR 1.09 (0.85-1.17)
--- NOTE | 2019-08-27 07:59 | NUR ---
PATIENT AWAKE AND ALERT ON BACK IN BED. WAITING ON PROCEDURE. NO NEEDS AT THIS TIME. CL IN REACH. WCTM
[2019-08-27 09:27] VITALS: BP 117/84
[2019-08-27 13:19] VITALS: BP 144/98
--- NOTE | 2019-08-27 14:16 | NUR ---
Nutrition follow-up: Pt NPO for IR procedure today PO intake of Low Sodium diet has been 100% of all meals Labs reviewed No new wt to assess RDN following.
[2019-08-27 17:47] VITALS: BP 138/90
--- NOTE | 2019-08-27 19:45 | NUR ---
ALERT AND ORENTED ABLE TO VOICE NEEDS AND WANTS TO STAFF. IV TO LEFT FA. IV TO RIGHT WRIST WITH NS AT 30, IN PLACE AND PATIEN. DRESSING TO LEFT FOOT CDI. WATER AND CALL LIGHT IN REACH.
[2019-08-27 20:00] VITALS: BP 140/92
[2019-08-28 00:57] VITALS: BP 123/82
[2019-08-28 04:19] LABS: BASOPHILS 1.2 % (0-2); CALC OSMOLALITY 277 mosm/kg (275-300); CALCIUM 8.4 mg/dL (8.5-10.1); CARBON DIOXIDE 28.7 mmol/L (21.0-32.0); CHLORIDE - SERUM 103 mmol/L (98-107); CREATININE - SERUM 0.9 mg/dL (0.6-1.3); EOSINOPHILS 12.3 % (0-7); GLUCOSE 92 mg/dL (74-106); HEMATOCRIT 34.7 % (42.0-54.0); HEMOGLOBIN 10.6 g/dL (13.5-17.5); IMMATURE GRANULOCYTES 0.9 % (0-5); LYMPHOCYTES 8.3 % (15-50); MCH 28.4 pg (26.0-34.0); MCHC 30.5 g/dL (31.0-37.0); MEAN PLATELET VOLUME 9.8 fL (7.4-10.4); MONOCYTES 5.2 % (2-11); NEUTROPHILS 72.1 % (40-80); POTASSIUM - SERUM 4.1 mmol/L (3.5-5.1); RBC 3.73 10x6/uL (4.20-6.10); RDW 18.1 % (11.5-14.5); SODIUM 138 mmol/L (136-145); UREA NITROGEN 18 mg/dL (7-18); WBC 12.8 10x3/uL (4.8-10.8); eGFR NON AFRICAN AMERICAN > 90 mL/min (90-120)
[2019-08-28 04:22] LABS: PLATELET COUNT 1475 10x3/uL (130-400); PLATELET ESTIMATE INCREASED
--- NOTE | 2019-08-28 04:40 | NUR ---
LAB CALLED WITH CRITICAL PLATELT COUNT OF [phone]. DR THOMAS PAGED AT [phone] AND RETRUNED CALL, INFRORMED . NO NEW ORDERS.
[2019-08-28 04:57] VITALS: BP 124/88
--- NOTE | 2019-08-28 07:30 | NUR ---
PATIENT IN BATHROOM. WILL RETURN TO DO ASSESSMENT.
--- NOTE | 2019-08-28 07:57 | NUR ---
PATIENT BACK IN BED. LAYING ON BACK. NO NEEDS AT THIS TIME. ASSESSMENT COMPLETED. WAITING ON ARTERIOGRAM. CL IN REACH. WCTM
--- NOTE | 2019-08-28 08:03 | NUR ---
CALLED SPECIALS. SPOKE WITH KANDICE. STATED THEY WILL NOT DO THE ARTERIOGRAM UNTIL PATIENTS PLATELETS RETURN TO NORMAL. STATED THAT IT COULD BE FOLLOWED UP ON AN OUTPATIENT BASIS.
[2019-08-28 08:47] VITALS: BP 144/95
[2019-08-28 12:48] VITALS: BP 132/92
[2019-08-28 17:16] VITALS: BP 139/91
[2019-08-28 22:05] VITALS: BP 144/96
[2019-08-29 01:08] VITALS: BP 140/92
[2019-08-29 04:03] LABS: CALC OSMOLALITY 272 mosm/kg (275-300); CALCIUM 8.3 mg/dL (8.5-10.1); CHLORIDE - SERUM 103 mmol/L (98-107); CREATININE - SERUM 0.7 mg/dL (0.6-1.3); GLUCOSE 97 mg/dL (74-106); POTASSIUM - SERUM 3.9 mmol/L (3.5-5.1); SODIUM 136 mmol/L (136-145); UREA NITROGEN 14 mg/dL (7-18); eGFR NON AFRICAN AMERICAN > 90 mL/min (90-120)
[2019-08-29 04:05] LABS: BASOPHILS 1.1 % (0-2); EOSINOPHILS 13.6 % (0-7); HEMATOCRIT 34.9 % (42.0-54.0); HEMOGLOBIN 10.6 g/dL (13.5-17.5); IMMATURE GRANULOCYTES 1.1 % (0-5); LYMPHOCYTES 8.2 % (15-50); MCH 28.1 pg (26.0-34.0); MCHC 30.4 g/dL (31.0-37.0); MCV 92.6 fL (80.0-100.0); MEAN PLATELET VOLUME 9.7 fL (7.4-10.4); MONOCYTES 5.4 % (2-11); NEUTROPHILS 70.6 % (40-80); RBC 3.77 10x6/uL (4.20-6.10); RDW 17.9 % (11.5-14.5); WBC 13.2 10x3/uL (4.8-10.8)
[2019-08-29 05:25] LABS: PLATELET COUNT 1517 10x3/uL (130-400)
[2019-08-29 05:38] VITALS: BP 137/93
--- NOTE | 2019-08-29 06:51 | NUR ---
LAB CALLED WITH PLATELET COUNT OF 1517 DR THOMAS CALLED NO NEW ORDERS.
--- NOTE | 2019-08-29 07:55 | NUR ---
PT RESTING IN BED. RESP EVEN AND UNLABORED. REPORTS PAIN 3/10 AT THIS TIME. IV TO LEFT FOREARM WITH NS@30ML/HR INFUSING VIA PUMP. SITE WITHOUT REDNESS OR EDEMA. DRESSING APPLIED TO LEFT FOOT PER MD ORDERS. SUTURES REMAIN INTACT TO INCISION. NO DRAINAGE NOTED. CLEANED WITH BETADINE, COVERED WITH XEROFORM 4X4'S, KERLEX AND GUAZE. PT BETSY WELL. DENEIS FURTHER NEEDS AT THIS TIME. CL WITHIN REACH. ENCOURAGED TO CALL WITH NEEDS. CONTINUE POC
[2019-08-29 09:57] VITALS: BP 148/101
--- NOTE | 2019-08-29 12:43 | MORECARE ---
CASE MANAGEMENT DISCHARGE SUMMARY PATIENT: PALLAVI UMAÑA UNIT: [id number] ADM DATE: 08/13/19 AGE: 54 : 69 SEX: M ROOM/BED: D.2203 AUTHOR: ALEXANDER,DOC PHYSICIAN: REFERRING PHYSICIAN: ROXANNE ALTMAN MD DATE OF SERVICE: 08/29/19 Discharge Plan Patient Name: PALLAVI UMAÑA Facility: [facility]:[place] : 1965 Planned Disposition: Anticipated Discharge Date: Discharge Date: Expected LOS: Initial Reviewer: [email or web address] Initial Review Date: 08/13/2019 Generated: 08/29/19 1:43 pm Comments DCP- Discharge Planning Updated by [email or web address]: Abi Parker on 08/29/19 11:[address] PATIENT WILL BE DISCHARGING HOME TODAY WITH [facility] IN [place], I WILL SEND CLINICALS OVER AND LET [facility] KNOW OF DISCHARGE. CM WILL CONTINUE TO FOLLOW AND ASSIST NEEEDED DCP- Discharge Planning Updated by [email or web address]: Jodi Fleming on 08/23/19 11:[address] Spoke with Gerri at [facility] in [place] and clinical faxed. I informed Gerri that I did not anticipate a discharge today, that he is having arteriogram and PIPIDA scan today. CM will continue to follow and assist with discharge planning/needs. Patient's PCP is Mari Calzada at [address] [place] [address] in [place]. CM verified address and phone number. CM spoke with sister per patient's request and she agrees with home health with [facility]. DCP- Discharge Planning Updated by [email or web address]: Melany Dixon on 08/20/19 6:[address] CM received a call from Donna @ [facility]. She stated that patient's diagnosis doesn't meet for inpatient rehab. CM explained that he has an order for vascular surgery to see patient and eval for potential surgery. Donna stated that if patient has to have another surgery to send another referral and they will check to see if they will be able to accept. DCP- Discharge Planning Updated by [id number]: Melany Dixon on 08/17/19 5:[address] CM spoke with patient to see if would be interested in rehab at [facility] if he still has days available when discharged. Patient did agree to Rehab and CONSTANTINO signed he doesn't want Home health at this time. CM faxed records to [facility]. Patient states he has all the DME equipment he needs. CM will continue to follow and assist as needed with discharge planning needs. DCP- Discharge Planning Updated by [email or web address]: Melany Dixon on 08/14/19 5:[address] Patient Name: PALLAVI UMAÑA Admission Status: ER Accout number: [id number] Admission Date: 08-13-2019 : 1965 Admission Diagnosis: Attending: CRUZITO Current LOS: 1 Anticipated DC Date: Planned Disposition: Primary Insurance: MEDICAID [place] Discharge Planning Comments: CM met with patient to complete initial dc planning assessment. CM educated patient on the CM role and verbal consent given by patient to complete assessment. Patient lives at home with his sister Marisol At discharge patient plans to return home and feels this is a safe discharge. CM discussed availability of home health, rehab services, and medical equipment. Patient denied known discharge needs at this time. Patient states he has a walker. CM will probably need to re-eval if patient has surgery. CM will continue to follow and will assist as needed with dc plans/needs. Real Time Operator: Melany Dixon DCPIA - Discharge Planning Initial Assessment Updated by [id number]: Melany Dixon on 08/14/19 6:29 pm * Is the patient Alert and Oriented? Yes * How many steps to enter\exit or inside your home? * PCP unknown ? CAS[facility] * Pharmacy [facility] * Preadmission Environment Home with Family * ADLs Independent * Equipment Walker * List name and contact numbers for known caregivers / representatives who currently or will assist patient after discharge: Marisol Umaña - sister - [phone] * Verbal permission to speak to the caregivers and representatives has been obtained from the patient. Yes * Community resources currently utilized None * Additional services required to return to the preadmission environment? No * Can the patient safely return to the preadmission environment? Yes * Has this patient been hospitalized within the prior 30 days at any hospital? Yes Coverage Notice Reviewer: [id number] - Melany Dixon Notice Issued Date-Time: 08/17/2019 18:31 Notice Type: Patient Choice Letter Notice Delivered To: Patient Relationship to Patient: Self Modeling Agency Manager Name: Delivery Method: HAND - Hand Delivered Mylene Days: Prior Verbal Notification: Recipient Understood Notice: Yes Recipient Signature: Yes Med Rec Note Co-signed by Attending: Coverage Notice Comment: [facility] Reviewer: [email or web address] Chris Fleming Notice Issued Date-Time: 08/23/2019 12:38 Notice Type: Patient Choice Letter Notice Delivered To: Patient Relationship to Patient: Self Modeling Agency Manager Name: Delivery Method: HAND - Hand Delivered Mylene Days: Prior Verbal Notification: Recipient Understood Notice: Yes Recipient Signature: Yes Med Rec Note Co-signed by Attending: Coverage Notice Comment: CON[facility] for [facility] Last DP export: 08/23/19 11:56 am Patient Name: PALLAVI UMAÑA Page [phone] at 1243 All edits/amendments must be made on the electronic document DICTATION DATE: 08/29/19 1243 BLENDER OPERATOR: WHIT 08/29/19 1243 RPT#: [id number] DC DATE: STATUS: ADM IN [facility] [address] [place] [address] END OF REPORT
--- NOTE | 2019-08-29 12:48 | NUR ---
I TRIED TO CALL DR PUGA OFFICE TO SEE ABOUT ABX FOR PATIENT, THEIR OFFICE IS CLOSED FOR THE DAY. I PAGED AKSHAT RICO FOR ORDERS. AWAITING CALL BACK.
--- NOTE | 2019-08-29 13:38 | MORECARE ---
CASE MANAGEMENT DISCHARGE SUMMARY PATIENT: PALLAVI UMAÑA UNIT: [id number] ADM DATE: 08/13/19 AGE: 54 : 69 SEX: M ROOM/BED: D.2203 AUTHOR: ALEXANDER,DOC PHYSICIAN: REFERRING PHYSICIAN: ROXANNE ALTMAN MD DATE OF SERVICE: 08/29/19 Discharge Plan Patient Name: PALLAVI UMAÑA Facility: [facility]:[place] : 1965 Planned Disposition: Anticipated Discharge Date: Discharge Date: Expected LOS: Initial Reviewer: [email or web address] Initial Review Date: 08/13/2019 Generated: 08/29/19 2:38 pm Comments DCP- Discharge Planning Updated by [email or web address]: Abi Parker on 08/29/19 12:[address] PATIENT WILL BE DISCHARGING TO HIS SISTERS HOME HER NUMBER IS [phone] DCP- Discharge Planning Updated by [email or web address]: Abi Parker on 08/29/19 11:[address] PATIENT WILL BE DISCHARGING HOME TODAY WITH [facility] IN [place], I WILL SEND CLINICALS OVER AND LET [facility] KNOW OF DISCHARGE. CM WILL CONTINUE TO FOLLOW AND ASSIST NEEEDED DCP- Discharge Planning Updated by [email or web address]: Jodi Fleming on 08/23/19 11:[address] Spoke with Gerri at [facility] in [place] and clinical faxed. I informed Gerri that I did not anticipate a discharge today, that he is having arteriogram and PIPIDA scan today. CM will continue to follow and assist with discharge planning/needs. Patient's PCP is Mari Calzada at [address] [place] [address] in [place]. CM verified address and phone number. CM spoke with sister per patient's request and she agrees with home health with [facility]. DCP- Discharge Planning Updated by [id number]: Melany Dixon on 08/20/19 6:[address] CM received a call from Donna @ [facility]. She stated that patient's diagnosis doesn't meet for inpatient rehab. CM explained that he has an order for vascular surgery to see patient and eval for potential surgery. Donna stated that if patient has to have another surgery to send another referral and they will check to see if they will be able to accept. DCP- Discharge Planning Updated by [id number]: Melany Zack on 08/17/19 5:[address] CM spoke with patient to see if would be interested in rehab at [facility] if he still has days available when discharged. Patient did agree to Rehab and CONSTANTINO signed he doesn't want Home health at this time. CM faxed records to [facility]. Patient states he has all the DME equipment he needs. CM will continue to follow and assist as needed with discharge planning needs. DCP- Discharge Planning Updated by [id number]: Melany Dixon on 08/14/19 5:[address] Patient Name: PALLAVI UMAÑA Admission Status: ER Accout number: [id number] Admission Date: 08-13-2019 : 1965 Admission Diagnosis: Attending: CRUZITO Current LOS: 1 Anticipated DC Date: Planned Disposition: Primary Insurance: MEDICAID [place] Discharge Planning Comments: CM met with patient to complete initial dc planning assessment. CM educated patient on the CM role and verbal consent given by patient to complete assessment. Patient lives at home with his sister Marisol At discharge patient plans to return home and feels this is a safe discharge. CM discussed availability of home health, rehab services, and medical equipment. Patient denied known discharge needs at this time. Patient states he has a walker. CM will probably need to re-eval if patient has surgery. CM will continue to follow and will assist as needed with dc plans/needs. Continuous Process Tanner Rotary Drum: Melany Dixon DCPIA - Discharge Planning Initial Assessment Updated by [email or web address]: Melany Dixon on 08/14/19 6:29 pm * Is the patient Alert and Oriented? Yes * How many steps to enter\exit or inside your home? * PCP unknown ? CAS[facility] * Pharmacy [facility] * Preadmission Environment Home with Family * ADLs Independent * Equipment Walker * List name and contact numbers for known caregivers / representatives who currently or will assist patient after discharge: Marisol Umaña - sister - [phone] * Verbal permission to speak to the caregivers and representatives has been obtained from the patient. Yes * Community resources currently utilized None * Additional services required to return to the preadmission environment? No * Can the patient safely return to the preadmission environment? Yes * Has this patient been hospitalized within the prior 30 days at any hospital? Yes Coverage Notice Reviewer: [id number] Chris Dixon Notice Issued Date-Time: 08/17/2019 18:31 Notice Type: Patient Choice Letter Notice Delivered To: Patient Relationship to Patient: Self Fitness Instructor Name: Delivery Method: HAND - Hand Delivered Mylene Days: Prior Verbal Notification: Recipient Understood Notice: Yes Recipient Signature: Yes Med Rec Note Co-signed by Attending: Coverage Notice Comment: [facility] Reviewer: [email or web address] Chris Fleming Notice Issued Date-Time: 08/23/2019 12:38 Notice Type: Patient Choice Letter Notice Delivered To: Patient Relationship to Patient: Self Fitness Instructor Name: Delivery Method: HAND - Hand Delivered Mylene Days: Prior Verbal Notification: Recipient Understood Notice: Yes Recipient Signature: Yes Med Rec Note Co-signed by Attending: Coverage Notice Comment: [facility] Last DP export: 08/29/19 11:43 a Patient Name: PALLAVI UMAÑA Page 99057 at 1338 All edits/amendments must be made on the electronic document DICTATION DATE: 08/29/19 1338 VALIDATION CONSULTANT: WHIT 08/29/19 1338 RPT#: [id number] DC DATE: STATUS: ADM IN [facility] [address] [place] [address] END OF REPORT
[2019-08-29] MEDS ORDERED: LISINOPRIL40 MG PO (13:48)
[2019-08-29] MEDS ORDERED: CATAPRES0.1 MG PO (13:48)
[2019-08-29] MEDS ORDERED: SMZ-TMP DS 800-1 TAB PO (13:48)
[2019-08-29] MEDS ORDERED: Nicoderm [PBKC] TRANSDERM (13:48)
[2019-08-29] MEDS ORDERED: FLORAJEN3 CAPS460 MG PO (13:48)
[2019-08-29] MEDS ORDERED: PLAVIX75 MG PO (13:48)
[2019-08-29] MEDS ORDERED: HYDROXYUREA500 MG PO (13:48)
[2019-08-29] MEDS ORDERED: ASPIRIN81 MG PO (13:48)
[2019-08-29] MEDS ORDERED: FOLIC ACID1 MG PO (13:48)
[2019-08-29] MEDS ORDERED: AGRYLIN0.5 MG PO (13:48)
[2019-08-29 14:41] VITALS: BP 124/86
--- NOTE | 2019-08-30 09:04 | MORECARE ---
CASE MANAGEMENT DISCHARGE SUMMARY PATIENT: PALLAVI UMAÑA UNIT: [id number] ADM DATE: 08/13/19 AGE: 54 : 69 SEX: M ROOM/BED: D.2203 AUTHOR: ALEXANDER,DOC PHYSICIAN: REFERRING PHYSICIAN: ROXANNE ALTMAN MD DATE OF SERVICE: 08/30/19 Discharge Plan Patient Name: PALLAVI UMAÑA Facility: [facility]:[place] : 1965 Planned Disposition: Anticipated Discharge Date: Discharge Date: 08/29/2019 Expected LOS: Initial Reviewer: [email or web address] Initial Review Date: 08/13/2019 Generated: 08/30/19 10:04 am Comments DCP- Discharge Planning Updated by [email or web address]: Abi Parker on 08/29/19 12:[address] PATIENT WILL BE DISCHARGING TO HIS SISTERS HOME HER NUMBER IS [phone] DCP- Discharge Planning Updated by [email or web address]: Abi Parker on 08/29/19 11:[address] PATIENT WILL BE DISCHARGING HOME TODAY WITH [facility] IN [place], I WILL SEND CLINICALS OVER AND LET [facility] KNOW OF DISCHARGE. CM WILL CONTINUE TO FOLLOW AND ASSIST NEEEDED DCP- Discharge Planning Updated by [id number]: Jodi Fleming on 08/23/19 11:[address] Spoke with Gerri at [facility] in [place] and clinical faxed. I informed Gerri that I did not anticipate a discharge today, that he is having arteriogram and PIPIDA scan today. CM will continue to follow and assist with discharge planning/needs. Patient's PCP is Mari Calzada at [address] [place] [address] in [place]. CM verified address and phone number. CM spoke with sister per patient's request and she agrees with home health with [place] [facility]. DCP- Discharge Planning Updated by [email or web address]: Melany Dixon on 08/20/19 6:[address] CM received a call from Donna @ [facility]. She stated that patient's diagnosis doesn't meet for inpatient rehab. CM explained that he has an order for vascular surgery to see patient and eval for potential surgery. Donna stated that if patient has to have another surgery to send another referral and they will check to see if they will be able to accept. DCP- Discharge Planning Updated by [email or web address]: Melany Zack on 08/17/19 5:[address] CM spoke with patient to see if would be interested in rehab at [facility] if he still has days available when discharged. Patient did agree to Rehab and CONSTANTINO signed he doesn't want Home health at this time. CM faxed records to [facility]. Patient states he has all the DME equipment he needs. CM will continue to follow and assist as needed with discharge planning needs. DCP- Discharge Planning Updated by [id number]: Melany Zack on 08/14/19 5:[address] Patient Name: PALLAVI UMAÑA Admission Status: ER Accout number: [id number] Admission Date: 08-13-2019 : 1965 Admission Diagnosis: Attending: CRUZITO Current LOS: 1 Anticipated DC Date: Planned Disposition: Primary Insurance: MEDICAID [place] Discharge Planning Comments: CM met with patient to complete initial dc planning assessment. CM educated patient on the CM role and verbal consent given by patient to complete assessment. Patient lives at home with his sister Marisol At discharge patient plans to return home and feels this is a safe discharge. CM discussed availability of home health, rehab services, and medical equipment. Patient denied known discharge needs at this time. Patient states he has a walker. CM will probably need to re-eval if patient has surgery. CM will continue to follow and will assist as needed with dc plans/needs. Drapery Rod Assembler: Melany Dixon DCPIA - Discharge Planning Initial Assessment Updated by [email or web address]: Melany Dixon on 08/14/19 6:29 pm * Is the patient Alert and Oriented? Yes * How many steps to enter\exit or inside your home? * PCP unknown ? [facility] * Pharmacy [place] * Preadmission Environment Home with Family * ADLs Independent * Equipment Walker * List name and contact numbers for known caregivers / representatives who currently or will assist patient after discharge: Marisol Umaña - sister - [phone] * Verbal permission to speak to the caregivers and representatives has been obtained from the patient. Yes * Community resources currently utilized None * Additional services required to return to the preadmission environment? No * Can the patient safely return to the preadmission environment? Yes * Has this patient been hospitalized within the prior 30 days at any hospital? Yes Coverage Notice Reviewer: [id number] - Melany Dixon Notice Issued Date-Time: 08/17/2019 18:31 Notice Type: Patient Choice Letter Notice Delivered To: Patient Relationship to Patient: Self Joint Sealer Name: Delivery Method: HAND - Hand Delivered Mylene Days: Prior Verbal Notification: Recipient Understood Notice: Yes Recipient Signature: Yes Med Rec Note Co-signed by Attending: Coverage Notice Comment: [facility] Reviewer: [email or web address] Chris Fleming Notice Issued Date-Time: 08/23/2019 12:38 Notice Type: Patient Choice Letter Notice Delivered To: Patient Relationship to Patient: Self Joint Sealer Name: Delivery Method: HAND - Hand Delivered Mylene Days: Prior Verbal Notification: Recipient Understood Notice: Yes Recipient Signature: Yes Med Rec Note Co-signed by Attending: Coverage Notice Comment: [facility] for [facility] Last DP export: 08/29/19 12:38 p Patient Name: PALLAVI UMAÑA Page 99911 at 0904 All edits/amendments must be made on the electronic document DICTATION DATE: 08/30/19903 TREASURY ASSOCIATE: WHIT 08/30/19903 RPT#: [id number] DC DATE:08/29/19 STATUS: DIS IN [facility] [address] [place] [address] END OF REPORT
== END 2019-08-29 18:21 | disposition home health service (06) | DRG 579 ==
LOC: D.ER 19:14 → D.MS 20:59 → D.SDCHOLD 08-28 11:58 → D.MS 08-28 12:03
PROVIDERS: Family Medicine; General Practice; Internal Medicine Nephrology; Orthopaedic Surgery; Specialist; ADMIT Family Medicine; ATTEND Family Medicine
PROC: 047L3Z1 Dilation of Left Femoral Artery using Drug-Coated Balloon, Percutaneous Approach (ICD-10-PCS; principal; 2019-08-15 08:50)
PROC: 0Y6N0Z9 Detachment at Left Foot, Partial 1st Ray, Open Approach (ICD-10-PCS; 2019-08-16)
PROC: 0Y6N0ZB Detachment at Left Foot, Partial 2nd Ray, Open Approach (ICD-10-PCS; 2019-08-16)
PROC: 0Y6N0ZC Detachment at Left Foot, Partial 3rd Ray, Open Approach (ICD-10-PCS; 2019-08-16)
PROC: 0Y6N0ZD Detachment at Left Foot, Partial 4th Ray, Open Approach (ICD-10-PCS; 2019-08-16)
PROC: 0Y6N0ZF Detachment at Left Foot, Partial 5th Ray, Open Approach (ICD-10-PCS; 2019-08-16)
DX: L03.116 Cellulitis of left lower limb (principal); K65.1 Peritoneal abscess; R18.8 Other ascites; E87.1 Hypo-osmolality and hyponatremia; F17.203 Nicotine dependence unspecified, with withdrawal; J90 Pleural effusion, not elsewhere classified; D73.3 Abscess of spleen; K52.9 Noninfective gastroenteritis and colitis, unspecified; I73.9 Peripheral vascular disease, unspecified; I10 Essential (primary) hypertension; D64.9 Anemia, unspecified; D47.3 Essential (hemorrhagic) thrombocythemia

== ENCOUNTER 2019-10-11 07:30 | Inpatient (IN) | payer OTHER ==
[2019-10-11] VITALS (15 sets, daily range): BP systolic 121–161; BP diastolic 78–97; Ht 185.4 cm; Wt 72.0 kg
[~2019-10-11] VITALS: Ht 185.4 cm; Wt 72.0 kg
--- NOTE | ~2019-10-11 | HEMODYNAMI ---
PATIENT:PALLAVI DON MEDICAL RECORD: [id number] : 69 LOCATION:[place] [address] ADMISSION DATE: 10/11/19 Generatedon:10/11/201912:55 Patient name: PALLAVI DON Patient #: [id number] SSN: : 1965 Date of study: 10/11/2019 Page: Of Hemodynamic Procedure Report Patient Data Patient Demographics Procedure consent was obtained First Name: PALLAVI Gender: Male Last Name: ARIAN : 1965 Patient #: [id number] Age: 54 year(s) Race: Unknown Additional ID: [id number] Contact details Address: [address] [place] [address] State: [place] City: [place] Zip code: [address] Past Medical History Allergies: No known allergies Admission Admission Data Admission Date: 10/11/2019 Admission Time: 8:50 Room #: [facility] Height (in.): 73 BSA: 1.95 (m2) Height (cm.): 185.42 BMI: 20.85 (kg/m2) Weight (lbs.): 158 Weight (kg.): 71.67 Procedure Procedure Types Cath Procedure Peripheral Cath Diagnostic Procedure Fluid Dynamicist Peripheral Procedures Abd/Extremity Extremities Bilat Lower Extremity Procedure Description Procedure Date Procedure Date: 10/11/2019 Procedure Start Time: 12:29 Procedure Staff Name Function Ronnie Odonnell MD Performing Physician Virginia Diop RT Town Justice Cindy Thompson RN Nurse Aureliano Dobbins RT Scrub Procedure Data Cath Procedure Fluoroscopy Diagnostic fluoroscopy Total fluoroscopy Time: 1.3 time: 1.3 min min Contrast Material Contrast Material Type Amount (ml) Isovue 300 70 Entry Location Entry Primary Successful Side Size Upsize Upsize Entry Closure Succes sful Closure Location (Fr) 1 (Fr) 2 (Fr) Remarks Device Remarks Femoral Exoseal artery Diagnostic catheters Device Type Used For End Catheter Placement Merit ULTRA BOLUS FLUSH 5Fr 65CM catheter ([id number]) Procedure Medications Medication Administration Route Dosage Lidocaine 1% added to field 20 Heparin Flush Bag added to field 3 bags (1000units/500ml NS) Versed I.V. 1 mg Fentanyl I.V. 50 mcg Benadryl I.V. 25 mg Hemodynamics Rest BSA: 1.95 (m2) O2 Consumption: Estimated: 232.13 (ml/min) O2 Consumption indexed : Estimated:119.04 (ml/min/m) Heart Rate: 70 (bpm) Snapshots Pre Cath Intra NCS Post Cath Vital Signs Time Heart Resp SPO2 etCO2 NIBP (mmHg) Rhythm Pain Sedation Rate (ipm) (%) (mmHg) Status Level (bpm) 12:12:01 71 17 100 25.5 144/95(115) NSR 0 (11) 10(A) , No pain 12:16:19 67 13 100 33 139/87(112) NSR 0 (11) 10(A) , No pain 12:20:29 74 15 32.2 142/89(108) NSR 0 (11) 10(A) , No pain 12:24:51 66 13 100 32.9 136/82(109) NSR 0 (11) 10(A) , No pain 12:29:07 72 17 31.4 138/85(111) NSR 0 (11) 10(A) , No pain 12:33:25 68 12 33.7 101/79(93) NSR 0 (11) 8(A) , No pain 12:37:31 69 12 100 37.4 117/72(97) NSR 0 (11) 8(A) , No pain 12:41:41 69 12 100 33.7 123/79(94) NSR 0 (11) 8(A) , No pain 12:45:53 12 100 36.7 136/78(106) NSR 0 (11) 8(A) , No pain 12:50:05 66 11 100 35.9 129/86(111) NSR 0 (11) 8(A) , No pain 12:54:19 72 17 100 32.9 131/80(106) NSR 0 (11) 8(A) , No pain Medications Time Medication Route Dose Verified Delivered Reason Notes Effec tiveness by by 12:26:55 Lidocaine 1% added 20ml Ronnie Trujillo used for to vial Odonnell Odonnell procedure field MD JOHNSON 12:28:11 Heparin Flush added 3 Ronnie Ronnie used for Bag to bags Odonnell Odonnell procedure (1000units/500ml field MD JOHNSON NS) 12:30:17 Versed I.V. 1 mg Ronnie White for Odonnell Jay RN sedation 12:30:38 Fentanyl I.V. 50 Ronnie White for mcg Odonnell [place] ALCARAZ sedation 12:31:01 Benadryl I.V. 25 mg Ronnie White for Odonnell [place] LISSA sedation Procedure Log Time Note 12:00:53 Patient Height : 73 inches 12:00:57 Patient Weight : 158 lbs 12:01:34 Time tracking: Regular hours (M-F 7:00 - 5:00) 12:02:08 Plan of Care:Hemodynamics will remain stable., Cardiac rhythm will remain stable., Comfort level will be maintained., Respiratory function will remain adequate., Patient/ family verbilizes understanding of procedure., Procedure tolerated without complication., Recovers from procedure without complications.. 12:02:18 Patient received from CVICU to IR Alert and oriented. Tansferred to table in Supine position. 12:02:21 Signed procedure consent form obtained from patient. 12:02:36 H&P Date Dictated: 10/11/2019 Within 30 days and on chart.. 12:02:38 Pre-procedure instructions explained to patient. 12:02:40 Pre-op teaching completed and patient verbalized understanding. 12:02:42 Family unavailable. 12:02:44 Patient NPO since Midnight. 12:02:54 Patient allergic to No known allergies 12:02:57 Is the patient allergic to Iodine/contrast media? No. 12:04:51 Is patient on blood thinner?Yes 12:04:54 Patient diabetic? No. 12:04:56 - 12:04:57 ----Pre-sedation anethsthesia assessment.---- 12:05:01 Previous problem with sedation/anesthesia? No ? 12:05:04 Snore? Yes 12:05:07 Sleep apnea? No 12:05:10 Deviated septum? No 12:05:11 Opens mouth fully? Yes 12:05:14 Sticks out tongue? Yes 12:05:18 Airway obstruction? No ? 12:05:28 Dentures? Yes out 12:05:32 - 12:06:29 Pre procedure: right dorsailis pedis pulse Doppler 12:06:33 Pre procedure: left dorsailis pedis pulse Doppler 12:06:37 Pre procedure: right posterior tibial pulse Doppler 12:06:42 Pre procedure: left posterior tibial pulse Doppler 12:06:52 Right groin area was prepped with chlora-prep and draped in sterile fashion 12:06:59 - 12:07:06 Fire Safety Assessment: A--An alcohol-based skin anteseptic being used preoperatively., C--Open oxygen or nitrous oxide is being used. 12:07:19 1) 90+ Normal kidney functon but urine findings or structural abnormalities or genetic trait point to kidney disease. 12:07:41 Use device set IR Diagnostic 12:08:12 PERCUTANEOUS ENTRY 19GA needle opened to sterile field. 12:08:13 SHEATH 5FR Lincoln (RFL505) opened to sterile field. 12:08:15 TUBING Contrast Injection High Pressure (PAL686H) opened to sterile field. 12:08:16 Tegaderm 4 x 4 (1626W) opened to sterile field. 12:08:17 Sterile Angiographic Pack opened to sterile field. 12:08:18 Bag Decanter (2001S) opened to sterile field. 12:08:19 ACIST Manifold (11752) opened to sterile field. 12:08:20 ACIST Hand Control (39533) opened to sterile field. 12:08:21 ACIST Syringe (07977) opened to sterile field. 12:10:53 Vital chart was started 12:13:52 A [employer] ULTRA BOLUS FLUSH 5Fr 65CM catheter ([id number]) was advanced over the wire and used for . 12:20:19 ECG and BP/O2 sat monitors applied to patient. 12:: Baseline sample Acquired. 12:: Full Disclosure recording started 12::23 - 12::54 DOC .035 wire (U23251) opened to sterile field. 12:26:55 Lidocaine 1% 20ml vial added to field was administered by Ronnie Odonnell MD; used for procedure; Verbal order read back and verified. 12:28:11 Heparin Flush Bag (1000units/500ml NS) 3 bags added to field was administered by Ronnie Odonnell MD; used for procedure; Verbal order read back and verified. 12:28:19 Physician arrived 12:: --------ALL STOP TIME OUT------ 12::21 Final Timeout: patient, procedure, and site verified with staff and physician. All members of the team are in agreement. 12:29:03 Procedure started. 12:29:07 Local anesthetic to right femoral artery with Lidocaine 1% by Ronnie Odonnell MD.INITIAL ACCESS ONLY 12:30:17 Versed 1 mg I.V. was administered by Cindy Thompson RN; for sedation; Verbal order read back and verified. 12:30:38 Fentanyl 50 mcg I.V. was administered by Cindy Thompson RN; for sedation ; Verbal order read back and verified. 12:31:01 Benadryl 25 mg I.V. was administered by Cindy Thompson RN; for sedation; Verbal order read back and verified. 12:34:47 GLIDE WIRE ANGLE 180cm (YJ8111) opened to sterile field. 12:40:45 EXOSEAL 5Fr (EX500) opened to sterile field. 12:41:14 A sheath was inserted into the Femoral artery 12:41:14 Sheath removed intact; hemostasis achieved with Exoseal to the Femoral artery. 12:41:56 Procedure ended.(Physican Out) 12:42:31 Fluoroscopy time 01.30 minutes. 12:42:53 Contrast amount:Isovue 300 70ml. 12:42:57 Procedure and supply charges have been captured, reviewed, submitted an d are correct. 12:44:50 Report given to CVICU. 12:55:48 Vital chart was stopped Device Usage Item Name Manufacture Quantity Catalog Number Hospital Part Current [facility] Lot# / Charge Number Stock Stock Serial# Code PERCUTANEOUS Cook Medical 1 [id number] 5 [id number] ENTRY 19GA needle SHEATH 5FR Terumo 1 [id number] 052211 284500 421009 5 [place] (GDW354) TUBING Merit [id number] 803142 797386 542939 5 Contrast Medical Injection High Pressure (RQL664M) Tegaderm 4 x 4 3M 1 1626W 015373 443275 110586 5 (1626W) Sterile Cardinal 1 [id number] 884730 203828 5 Angiographic Health Pack Bag Decanter Microtek 1 2001S 151204 72117 025023 5 (2001S) Medical Inc. ACIST Manifold Acist 1 25818 841942 625967 374660 5 (79880) Medical Systems Inc ACIST Hand Acist 1 64601 328280 902604 262567 5 Control Medical (61540) Systems Inc ACIST Syringe Acist 1 20223 015001 925673 647166 20 (17899) Medical Systems Inc Merit ULTRA Merit 1 [id number] 747681 926856 5 BOLUS FLUSH Medical 5Fr 65CM catheter ([id number]) DOC .035 wire Cook Medical 1 M91664 703597 197005 5 (Y24975) GLIDE WIRE Terumo 1 [id number] 205005 027991 797207 5 ANGLE 180cm (GO7731) EXOSEAL 5Fr Cardinal 1 EX500 340447 094686 236002 10 [id number] (EX500) Health Signature Audit Ninole Stage Time Signature Unsigned Intra-Procedure 10/11/2019 Virginia Diop 12:55:45 PM RT(R) [facility] [address] [place] [address]
[~2019-10-11 07:30] MED LIST: AGRYLIN0.5 MG PO; ASPIRIN81 MG PO; BAYER CHEWABLE81 MG PO; CATAPRES0.1 MG PO; FLORAJEN3 CAPS460 MG PO; FOLIC ACID1 MG PO; HYDROXYUREA500 MG PO; LISINOPRIL40 MG PO; Nicoderm [PBKC] TRANSDERM; PERCOCET 10-321 EAC1 PO; PLAVIX75 MG PO; SMZ-TMP DS 800-1 TAB PO
[2019-10-11] MEDS ORDERED: LIPITOR20 MG PO (09:18)
[2019-10-11] MEDS ORDERED: CO Q-10100 MG PO (09:19)
[2019-10-11] MEDS ORDERED: VITAMIN B-1100 M1 PO (09:19)
[2019-10-11] MEDS ORDERED: SUPER B COMPLE1 EAC1 PO (09:20)
--- NOTE | 2019-10-11 09:35 | NUR ---
RECEIVED PATIENT VIA WHEELCHAIR FROM ADMISSIONS, ALERT AND ORIENTED X 4, VSS. DP AND PT PULSES +2 BILATERALLY AND MARKED, LEFT FOOT WITH PARTIAL AMPUTATION NOTED WITH HEALING INCISION. SURGERY 7 WEEKS AGO. CM - NSR WITH OCCASSIONAL PVCS NOTED, HR - 68, BBS - CLEAR AND EQUAL, SPO2 - 98-100% ON RA, RR 16, NONLABORED. 12-LEAD ECG COMPLETED AND CONSENTS SIGNED, LAB NOTIFED FOR LAB DRAW. IV 18 GA STARTED TO LEFT AC X 1 ATTEMPT, POSITIVE BLOOD RETURN AND FLUSHES EASILY. NSL. SCD'S PLACED. C/O "PHANTOM PAIN" 2/10 TO LEFT FOOT, STATES HURTS WHEN HE PLACES IT ON THE GROUND. HEAD TO TOE ASSESSMENT COMPLETED.
--- NOTE | 2019-10-11 10:50 | NUR ---
LAB AT ROOM, LABS DRAWN AND SENT TO LAB, BLOOD BAND APPLIED. VSS.
--- NOTE | 2019-10-11 10:59 | NUR ---
REASSESSMENT COMPLETED. VSS. WATCHING TV, NO NEEDS AT THIS TIME.
[2019-10-11 11:02] LABS: HEMOGLOBIN 14.1 g/dL (13.5-17.5); MCH 31.4 pg (26.0-34.0); MEAN PLATELET VOLUME 10.5 fL (7.4-10.4); RBC 4.49 10x6/uL (4.20-6.10); RDW 20.7 % (11.5-14.5); WBC 5.5 10x3/uL (4.8-10.8)
[2019-10-11 11:20] LABS: ALBUMIN 3.6 g/dL (3.4-5.0); ALKALINE PHOSPHATASE 75 U/L (30-120); ALT (SGPT) 52 U/L (10-68); BILIRUBIN - TOTAL 0.39 mg/dL (0.2-1.3); CALC OSMOLALITY 280 mosm/kg (275-300); CALCIUM 8.8 mg/dL (8.5-10.1); CARBON DIOXIDE 28.6 mmol/L (21.0-32.0); CHLORIDE - SERUM 105 mmol/L (98-107); CREATININE - SERUM 0.9 mg/dL (0.6-1.3); GLUCOSE 83 mg/dL (74-106); POTASSIUM - SERUM 4.4 mmol/L (3.5-5.1); PROTEIN - SERUM 7.1 g/dL (6.4-8.2); SODIUM 141 mmol/L (136-145); UREA NITROGEN 15 mg/dL (7-18); eGFR NON AFRICAN AMERICAN > 90 mL/min (90-120)
[2019-10-11 11:30] LABS: APTT 35.9 SECONDS (22.8-39.4); INR 1.1 (0.85-1.17); PROTIME 14.2 SECONDS (11.6-15.0)
--- NOTE | 2019-10-11 11:55 | NUR ---
PATIENT TAKEN TO IR FOR PROCEDURE VIA BED.
[2019-10-11 12:06] LABS: PLT FUNCT.(P2Y12) PLAVIX 120 PRU (194-418)
[2019-10-11 12:39] LABS: BACTERIA FEW /hpf (NEGATIVE); BILIRUBIN NEGATIVE (NEGATIVE); EPITHELIAL CELLS OCC /hpf (0-5); GLUCOSE NEGATIVE (NEGATIVE); KETONE NEGATIVE (NEGATIVE); NITRITE NEGATIVE (NEGATIVE); RED CELLS - URINE NONE SEEN /hpf (0-5); SPECIFIC GRAVITY 1.015 (1.005-1.020); UROBILINOGEN NORMAL (NORMAL); WHITE CELLS - URINE OCC /hpf (NEGATIVE)
--- NOTE | 2019-10-11 13:12 | NUR ---
PATIENT RECEIVED BACK FROM IR, RIGHT GROIN SOFT, NO HEMATOMA OR BLEEDING NOTED, DRESSING C/D/I, DISTAL PULSES +2 BILATERALLY TO DP AND PT. VSS. IV 18 GA TO LEFT AC NSL.
--- NOTE | 2019-10-11 13:23 | NUR ---
PATIENT GIVEN SPRITE PER SHIRLEY, LATE TRAY ORDERED.
--- NOTE | 2019-10-11 14:34 | NUR ---
PATIENT ATE 100% OF LATE TRAY FOR LUNCH. VSS. RIGHT GROIN SOFT TO PALPATION, NO HEMATOMA NOTED, NO BLEEDING NOTED. PT AND DP BILATERALLY +2.
--- NOTE | 2019-10-11 14:51 | NUR ---
DR. BURDEN AT ROOM UPDATED AND SPEAKS WITH PATIENT.
--- NOTE | 2019-10-11 15:06 | NUR ---
REASSESSMENT COMPLETED. VSS. RIGHT GROIN SOFT, NO HEMATOMA, NO BLEEDING, DRESSING C/D/I. DISTAL DP AND PT PULSES +2 BILATERALLY.
--- NOTE | 2019-10-11 16:18 | NUR ---
PATIENT GIVEN DISCHARGE INSTRUCTIONS, VERBALIZES UNDERSTANDING. IV DISCONTINUED, DRESSED WITH 2X2 AND TAPE. VSS. RIGHT GROIN SOFT NO HEMATOMA NOTED. DISTAL DP AND PT PULSES +2 BILATERALLY.
--- NOTE | 2019-10-11 16:37 | NUR ---
PATIENT DISCHARGED TO HOME, VSS.
== END 2019-10-11 16:37 | disposition home or self-care (01) | DRG 301 ==
LOC: D.SDCHOLD 07:30 → D.CVICU 08:50
PROVIDERS: Specialist; ADMIT Thoracic Surgery (Cardiothoracic Vascular Surgery); ATTEND Thoracic Surgery (Cardiothoracic Vascular Surgery)
PROC: B40G1ZZ Plain Radiography of Left Lower Extremity Arteries using Low Osmolar Contrast (ICD-10-PCS; principal; 2019-10-11 12:01)
DX: I70.202 Unspecified atherosclerosis of native arteries of extremities, left leg (principal); Z89.512 Acquired absence of left leg below knee; I10 Essential (primary) hypertension